=== PATIENT | female | born 1955 | race Caucasian/White ===

== ENCOUNTER 2017-11-02 11:42 | Day surgery (SDC) | payer BC, SELFPAY ==
[2017-11-02] VITALS (7 sets, daily range): BP systolic 134–155; BP diastolic 80–90; PULSE 90–101; RESP 18–20; TEMP 36.6–36.7; O2SAT 94–98; BMI 49.1
[2017-11-02] MEDS: MethylPREDNISolone Acetate 80 MG/ML Vial (12:41)
[2017-11-02] MEDS: Bupivacaine 0.25% 30 ML Vial (12:43)
--- NOTE | 2017-11-02 13:10 | RAD_ITS ---
STUDY: X-RAY - LUMBAR SPINE REASON FOR EXAM: Female, 62 years old. Left L3-S1 radiofrequency ablation. TECHNIQUE: 6 coned-down view(s) of the lumbar spine were obtained intraoperatively. COMPARISON: None FINDINGS: Imaging was provided for left L3-S1 radiofrequency ablation. RAD/L/S Spine Min 4 Views IMPRESSION: Fluoroscopic services provided for left L3-S1 radiofrequency ablation. Electronically Signed: Chuck Salazar MD at 14:04 EST Tel [phone], Service support ,
--- NOTE | 2017-11-02 13:31 | PCM.OPRPT ---
Problem List (1) Lumbar degenerative disc disease Status: Chronic (2) Lumbar facet arthropathy Status: Chronic (3) Lumbosacral spondylosis Status: Chronic Report of Operation Date of Procedure: 11/02/17 Pre-Operative Diagnosis: Lumbosacral spondylosis, lumbosacral degenerative disc disease, lumbar facet arthropathy Post-Operative Diagnosis: Lumbosacral spondylosis, lumbosacral degenerative disc disease, lumbar facet arthropathy Surgery/Procedure Performed:: Left-sided lumbar radiofrequency ablation of the medial branch L3, L4, L5, S1 Description of Surgical Findings:: PROCEDURE: Left-sided radiofrequency ablation of the medial branch L3, L4, L5, S1 PREOPERATIVE DIAGNOSES: Lumbosacral spondylosis, lumbosacral degenerative disc disease, lumbar facet arthropathy POSTOPERATIVE DIAGNOSES: Lumbosacral spondylosis, lumbosacral degenerative disc disease, lumbar facet arthropathy ANESTHESIA: MAC COMPLICATIONS: None BLOOD LOSS: Minimal PROCEDURE IN DETAIL: History and physical today was reviewed. Risks and benefits of procedure explained. The patient understood, agreed to the procedure and informed consent was obtained. IV inserted per routine protocol. The patient was taken to the operating room, placed in the prone position with a pillow positioned underneath the abdomen. The right side of the lower back was prepped and draped in a sterile fashion using iodine x 3. Under fluoroscopy guidance, on an oblique view, the L3 through S1 vertebral bodies were visualized. The skin and subcutaneous tissue was anesthetized with approximately 10 mL of 1% lidocaine using a 25-gauge regular needle. Under direct visualization with fluoroscopy at approximately 25-degree angle, starting on the left L3, ending on the left S1 passing through the L4-L5 using a 20-gauge 15 cm with a 10 mm curved active tip radiofrequency ablation needle the needle passed through the skin. The tip of the needle was maneuvered and directed towards the superior and medial gutter of the transverse process at the vicinity of the medial branch. Once the tip of the needle was in contact with the bone, the needle pulled approximately 2 mm up the bone. The stylet of each needle was then removed. After negative aspiration of blood with CSF and confirmation of AP as well as oblique view, radiofrequency ablation probe was then inserted at each level. Impedance was then recorded at L3 to be 249, at L4 268, at L5 297, at S1 279 ohm. Motor-evoked potential was then initiated to 1.5 volt without any motor response at each corresponding level. The probe was then removed intact and a total of 6 mL preservative-free 1% lidocaine was injected in divided doses between those 4 levels after negative aspiration of blood with CSF. The radiofrequency ablation probe was then reinserted after confirmation of AP, oblique as well as lateral view. Radiofrequency ablation was then initiated to 80 degrees Celsius for 90 seconds at each level. Once concluded, the probe was then removed intact and a total of 6 mL of preservative-free 0.25% Marcaine with 40 mg Depo-Medrol was injected in divided doses between those 4 levels. The needles were then removed intact. The patient experienced no signs or symptoms of intrathecal, intravascular injection. The patient experienced no paraesthesia. The procedure was completed without any apparent difficulty, any complication. The patient appeared to tolerate well. Sensory as well as motor exam was unchanged from prior to procedure. ASSESSMENT AND PLAN: This is a 62-year-old Female with lumbosacral spondylosis, lumbosacral degenerative disc disease, lumbar facet arthropathy, status post left-sided radiofrequency ablation of the medial branch L3 through S1. The patient will continue her current medications. The patient will follow up in approximately 2 weeks for reevaluation.
== END 2017-11-02 15:40 | disposition home or self-care (01) ==
LOC: SDC 11:44 → ACINP 11:47 → AC 13:35
PROVIDERS: Family Provider Family Medicine; PCP Family Medicine; Visit Provider Anesthesiology Pain Medicine
PROC: (CPT 64635; principal; 2017-11-02 12:55)
DX: M47.817 Spondylosis without myelopathy or radiculopathy, lumbosacral region (principal); M51.37 Other intervertebral disc degeneration, lumbosacral region; E03.9 Hypothyroidism, unspecified; E11.9 Type 2 diabetes mellitus without complications; E55.9 Vitamin D deficiency, unspecified; J45.909 Unspecified asthma, uncomplicated; M79.1 Myalgia; M54.16 Radiculopathy, lumbar region; Z79.891 Long term (current) use of opiate analgesic
CPT/HCPCS: 64635; 64636 ×3; 72110; 76000; J7120

== ENCOUNTER 2018-02-01 07:22 | Day surgery (SDC) | payer BC, SELFPAY ==
[2018-02-01 08:15] VITALS: BP 144/92; PULSE 92; RESP 18; TEMP 36.6; O2SAT 97; BMI 47.9
[2018-02-01] MEDS: Bupivacaine 0.25% 30 ML Vial (08:29)
[2018-02-01] MEDS: 0.9% Saline Lock 10 ML Syringe IV (08:30)
[2018-02-01] MEDS: MethylPREDNISolone Acetate 80 MG/ML Vial (08:30)
[2018-02-01 08:40] LABS: Bedside Glucose 112 mg/dL (70-110)
--- NOTE | 2018-02-01 09:10 | RAD_ITS ---
PROCEDURE: Caudal block. DATE OF EXAMINATION: February 01, 2018. INDICATION: Female, 62 years old. Chronic low back pain. FLUOROSCOPY TIME (if supplied): (0:05) minutes/seconds Intraoperative imaging provided for caudal block. RAD/Fluor Guidance for Spine Inj IMPRESSION: Intraoperative imaging provided for caudal block. Electronically Signed: Chuck Salazar MD at 14:45 EDT Tel [phone], Service support ,
[2018-02-01 09:35] VITALS: BP 132/98; BP 144/92; PULSE 85; RESP 16; TEMP 37.4; O2SAT 95
[2018-02-01 09:40] VITALS: BP 144/92; BP 153/88; PULSE 88; RESP 16; O2SAT 94
[2018-02-01 09:45] VITALS: BP 144/92; BP 159/94; BP 161/90; PULSE 85; PULSE 88; RESP 16; TEMP 36.6; O2SAT 95; O2SAT 96
[2018-02-01 11:32] VITALS: BP 144/92
--- NOTE | 2018-02-01 15:40 | PCM.OPRPT ---
Problem List (1) Lumbar degenerative disc disease Status: Chronic (2) Lumbar radiculopathy Status: Chronic (3) Lumbar stenosis Status: Chronic Report of Operation Date of Procedure: 02/01/18 Pre-Operative Diagnosis: Lumbosacral radiculopathy, lumbosacral degenerative disc disease, lumbosacral spinal stenosis Post-Operative Diagnosis: Lumbosacral radiculopathy, lumbosacral degenerative disc disease, lumbosacral spinal stenosis Surgery/Procedure Performed:: Caudal epidural steroid injection Description of Surgical Findings:: Procedure: Caudal epidural steroid injection Preoperative diagnosis: Lumbosacral radiculopathy, lumbosacral degenerative disc disease, lumbosacral spinal stenosis Postoperative diagnosis:Lumbosacral radiculopathy, lumbosacral degenerative disc disease, lumbosacral spinal stenosis Anesthesia: MAC Blood loss: Minimal Complications: None Procedure in detail: History and physical today was reviewed risk and benefits of procedure explained the patient understood and agreed to procedure informed consent was obtained IV inserted per routine protocol patient was taken to the operating room placed in the prone position with a pillow position underneath the abdomen the lower back and tailbone area was prepped and draped in a sterile fashion using iodine ?3 under direct visualization with fluoroscopy on the lateral view the caudal space was identified skin and subcutaneous tissue anesthetized approximately 3 cc of 1% lidocaine using a 25-gauge regular needle under direct visualization fluoroscopy on the lateral view using a 22-gauge 3-1/2 inch spinal needle the needle was advanced via the skin through the sacral hiatus tip of needle passed through the sacrococcygeal ligament advanced approximately S4 area after negative aspiration for blood or CSF a total of 3 cc of contrast were injected to confirm correct placement of the needle as well as cephalad spread the spread was followed to approximately L5 area after repeated confirmation AP as well as lateral view and repeated negative aspiration a total of 15 cc of preservative-free 0.125% Marcaine with 80 mg of Depo-Medrol were injected easily the needle was then removed intact patient experienced no sinus symptoms intrathecal or intravascular injection patient experienced no paresthesia the procedure was completed without any apparent difficulty any complication the patient appeared to tolerate well. Assessment and plan: This is a 62-year-old female with lumbosacral radiculopathy lumbosacral degenerative disc disease lumbosacral spinal stenosis status post caudal epidural steroid injection patient will continue her current medications patient will follow approximately 2 weeks for possible repeat of the procedure if indicated.
== END 2018-02-01 11:32 | disposition home or self-care (01) ==
LOC: SDC 07:23 → AC 07:46
PROVIDERS: Family Provider Family Medicine; PCP Family Medicine; Visit Provider Anesthesiology Pain Medicine
PROC: 3E0S3BZ Introduction of Anesthetic Agent into Epidural Space, Percutaneous Approach (ICD-10-PCS; CPT 62282; principal; 2018-02-01 09:05)
DX: M51.17 Intervertebral disc disorders with radiculopathy, lumbosacral region (principal); M48.07 Spinal stenosis, lumbosacral region; E03.9 Hypothyroidism, unspecified; E11.9 Type 2 diabetes mellitus without complications; J45.909 Unspecified asthma, uncomplicated; M79.1 Myalgia; M47.817 Spondylosis without myelopathy or radiculopathy, lumbosacral region; Z79.891 Long term (current) use of opiate analgesic
CPT/HCPCS: 01935; 64483; 77003; 82962; J7120; A4216

== ENCOUNTER 2018-05-03 09:12 | Day surgery (SDC) | payer BC, SELFPAY ==
[2018-05-03] VITALS (7 sets, daily range): BP systolic 93–148; BP diastolic 70–83; PULSE 85–100; RESP 14–16; TEMP 36–36.9; O2SAT 94–98; BMI 45.1
--- NOTE | 2018-05-03 10:24 | RAD_ITS ---
PROCEDURE: Caudal block. DATE OF EXAMINATION: May 03, 2018 INDICATION: Female, 62 years old. Chronic back pain. FLUOROSCOPY TIME (if supplied): (0:04) minutes/seconds A caudal block was performed by the pain management physician. The spinal needle is seen along the posterior midportion of the sacrum. RAD/Fluor Guidance for Spine Inj IMPRESSION: Fluoroscopic services provided for caudal block. Electronically Signed: Chuck Salazar MD at 8:01 EDT Tel [phone], Service support ,
[2018-05-03] MEDS: Bupivacaine 0.25% 30 ML Vial (10:26)
[2018-05-03] MEDS: MethylPREDNISolone Acetate 80 MG/ML Vial (10:26)
--- NOTE | 2018-05-03 11:17 | OP.PCM_ITS ---
Problem List (1) Lumbar degenerative disc disease Status: Chronic (2) Lumbar radiculopathy Status: Chronic (3) Lumbar stenosis Status: Chronic Report of Operation Date of Procedure: 05/03/18 Pre-Operative Diagnosis: Lumbosacral radiculopathy, lumbosacral degenerative disc disease, lumbosacral spinal stenosis Post-Operative Diagnosis: Lumbosacral radiculopathy, lumbosacral degenerative disc disease, lumbosacral spinal stenosis Surgery/Procedure Performed:: Caudal epidural steroid injection Description of Surgical Findings:: PROCEDURE: Caudal epidural steroid injection PREOPERATIVE DIAGNOSIS: Lumbosacral radiculopathy, lumbosacral degenerative disc disease, lumbosacral spinal stenosis POSTOPERATIVE DIAGNOSIS: Lumbosacral radiculopathy, lumbosacral degenerative disc disease, lumbosacral spinal stenosis ANESTHESIA: MAC COMPLICATIONS: None BLOOD LOSS: Minimal PROCEDURE IN DETAIL: History and physical today was reviewed. Risks and benefits of the procedure were explained. The patient understood, agreed to our procedure, and informed consent was obtained. IV inserted per routine protocol. The patient was taken to the operating room, placed in a prone position with a pillow positioned underneath the abdomen. The lower back and tailbone area was prepped and draped in a sterile fashion using iodine ?3 under fluoroscopy guidance on the lateral view the caudal space was identified skin and subcutaneous tissue anesthetized approximately 3 cc of 1 % lidocaine using a 25-gauge regular needle under direct visualization with fluoroscopy on the lateral approach using a 22-gauge 3-1/2 inch spinal needle the needle was advanced via the skin through the sacral hiatus tip of the needle passed through the sacrococcygeal ligament advanced approximately S4 area after negative aspiration for blood or CSF a total of 3 cc of contrast were injected to confirm correct placement of the needle as well as cephalad spread the spread was followed to approximately L5 area after confirmation of AP as well as lateral view and repeated negative aspiration a total of 15 cc of preservative-free 0.125% Marcaine with 80 mg of Depo-Medrol were injected easily the needle was then removed intact patient experienced no sinus symptoms intrathecal or intravascular injection patient experienced no paresthesia the procedure was completed without any apparent difficulty any complication the patient appeared to tolerate well. ASSESSMENT AND PLAN: This is a 62-year-old Female with lumbosacral radiculopathy, lumbosacral degenerative disc disease, lumbosacral spinal stenosis status post caudal epidural steroid injection. The patient will continue her current medications. The patient will follow in approximately 2 weeks for possible repeat of the procedure if indicated.
== END 2018-05-03 12:38 | disposition home or self-care (01) ==
LOC: SDC 09:12 → AC 09:15
PROVIDERS: Family Provider Family Medicine; PCP Family Medicine; Visit Provider Anesthesiology Pain Medicine
PROC: 3E0S3BZ Introduction of Anesthetic Agent into Epidural Space, Percutaneous Approach (ICD-10-PCS; CPT 62282; principal; 2018-05-03 10:25)
DX: M51.17 Intervertebral disc disorders with radiculopathy, lumbosacral region (principal); M48.07 Spinal stenosis, lumbosacral region; E03.9 Hypothyroidism, unspecified; E11.9 Type 2 diabetes mellitus without complications; J45.909 Unspecified asthma, uncomplicated; M46.96 Unspecified inflammatory spondylopathy, lumbar region; M79.1 Myalgia; M47.817 Spondylosis without myelopathy or radiculopathy, lumbosacral region; Z79.891 Long term (current) use of opiate analgesic
CPT/HCPCS: 64483; 77003; J7120; J3490

== ENCOUNTER → 2018-06-01 12:47 | Outpatient (CLI) | payer BC, SELFPAY | PROVIDERS: Family Provider Family Medicine; PCP Family Medicine; Visit Provider Orthopaedic Surgery | DX: M54.16 Radiculopathy, lumbar region (principal) | CPT/HCPCS: 72114 ==

== ENCOUNTER → 2018-08-10 12:54 | Outpatient (CLI) | payer BC, SELFPAY ==
--- NOTE | 2018-08-10 12:57 | RAD_ITS ---
STUDY: X-RAY - LUMBAR SPINE REASON FOR EXAM: Female, 63 years old. Leg numbness. Surgery June 18. TECHNIQUE: 2 upright view(s) of the lumbar spine were obtained. COMPARISON: 7 total images of the lumbar spine with lateral flexion and extension views June 01, 2018. FINDINGS: Since the prior study, the patient has undergone L3-4 discectomy and placement of a prosthesis as well as L3 laminectomies and bilateral posterior fusion L2-L4. Bilateral transpedicular screws at those levels are connected on either side but longitudinal metal rods. There is straightening of the normal lumbar lordosis. 21.5 degree levorotoscoliosis centered at L1-2 on prior exam has been reduced to approximately 14 degree levoscoliosis with minimal rotation. Anterolisthesis of L3 on L4 also has been decreased to approximately 4 mm. There is stable borderline retrolisthesis and mild rightward subluxation of L4 on L5. There is stable multilevel endplate spondylosis of the lumbar vertebrae, including posterolateral endplate spurring at L4-5 and L5-S1. Ridging left lateral endplate osteophytes at L4-5 also unchanged. There is stable multi-level degenerative disc disease with multi-level disc space narrowing. There is no demonstrated fracture. Degenerative changes of the lumbar facet articulations are most prominent at L4-5 and L5-S1. There are also stable degenerative arthroses of the bilateral sacroiliac joints. The soft tissue structures are unremarkable. RAD/Lumbar Spine 2 or 3 Views IMPRESSION: 1. Patient has undergone L3 laminectomies, L4-5 discectomy with placement of a disc prosthesis, and bilateral posterior L2-L4 fusion with metal hardware since previous study. Levorotoscoliosis centered at L1-2 as well as anterolisthesis of L3-4 are improved, as noted. 2. Degenerative changes of the spine, as detailed above, are otherwise unchanged. Electronically Signed: Candelario Samuels MD at 14:32 EDT , Service support ,
== END ==
PROVIDERS: Family Provider Family Medicine; PCP Family Medicine; Referring Provider Orthopaedic Surgery; Visit Provider Orthopaedic Surgery
DX: M54.5 Low back pain (principal)
CPT/HCPCS: 72100

== ENCOUNTER → 2018-09-28 10:29 | Outpatient (CLI) | payer BC, SELFPAY ==
[2018-05-03 09:34] VITALS: BMI 45.1
--- NOTE | 2018-09-28 10:33 | RAD_ITS ---
STUDY: X-RAY - LUMBAR SPINE REASON FOR EXAM: Female, 63 years old. Lower back pain TECHNIQUE: Frontal and lateral view(s) of the lumbar spine were obtained. COMPARISON: None FINDINGS: Mild low lumbar extra scoliosis. Posterior carley and pedicle screw fixation at L2-L4, with interbody spacer at L3-L4. L4-L5 moderate disc space narrowing, endplate degenerative changes, disc vacuum changes. Mild to moderate disc degenerative features at L5-S1 Multilevel mid to low lumbar facet arthropathy. There is normal vertebral body height at each level. There is mild anterior listhesis of L3 relative to L2 and L4. RAD/Lumbar Spine 2 or 3 Views IMPRESSION: Listhesis of L3 relative to L2 and L4. Surgical construct between L2 and L4 appears intact. Prominent disc degenerative features at L4-L5, mild to moderate L5-S1. Scoliosis. Electronically Signed: Chris Arteaga MD at 17:54 EST Tel , Service support ,
--- OUTSIDE RECORDS SUMMARY | 2018-11-14 11:00 | XMS RPT_ITS ---
:1955 Author Organization OHIP Support Name Relationship Address Phone HOSPICE Unavailable [address] + [place] [address] NICKLIN, DANA Unavailable [address] + [place] [address] HOSPICE Unavailable [address] + [place] [address] NICKLIN, DANA Unavailable [address] + [place] [address] HOSPICE Unavailable [address] + [place] [address] NICKLIN, DANA Unavailable [address] + [place] [address] HOSPICE Unavailable [address] + [place] [address] NICKLIN, DANA Unavailable [address] + [place] [address] HOSPICE Unavailable [address] + [place] [address] NICKLIN, DANA Unavailable [address] + [place] [address] ALEXEI KELLY Unavailable Unavailable Unavailable DOMERS, GEOVANNY Unavailable Unavailable Unavailable KOSIBA, AMANDO Unavailable Unavailable Unavailable BARIISADORAMAN KELLY Unavailable Unavailable Unavailable DOMERS, GEOVANNY Unavailable Unavailable Unavailable KOSIBA, AMANDO Unavailable Unavailable Unavailable BARIARASH FAYEEN Unavailable Unavailable Unavailable DOMERS, GEOVANNY Unavailable Unavailable Unavailable KOSIBA, AMANDO Unavailable Unavailable Unavailable BARICKMAN KELLY Unavailable Unavailable Unavailable DOMERS, GEOVANNY Unavailable Unavailable Unavailable KOSIBA, AMANDO Unavailable Unavailable Unavailable HOSPICE Unavailable [address] + [place] [address] NICKLIN, DANA Unavailable [address] + [place] [address] HOSPICE Unavailable [address] + [place] [address] NICKLIN, DANA Unavailable [address] + [place] [address] HOSPICE Unavailable [address] + [place] [address] NICKLIN, DANA Unavailable Unavailable + [place] [address] HOSPICE Unavailable [address] + [place] [address] NICKLIN, DANA Unavailable Unavailable + [place] [address] KELLY ROTHMAN Unavailable Unavailable Unavailable DOMERS, GEOVANNY Unavailable Unavailable Unavailable KOSIBA, AMANDO Unavailable Unavailable Unavailable Care Team Providers Name Role Phone CINTIA WEINBERG Admitting Unavailable CINTIA WEINBERG Attending Unavailable MARYAN, CHAPARRO A Referring Unavailable CONSULT, GENERAL MEDICINE Consulting Unavailable CINTIA WEINBERG Attending Unavailable MENG WEINBERGCINTIA Referring Unavailable CINTIA WEINBERG Attending Unavailable SELF, SELF Referring Unavailable MARYAN, CHAPARRO A Primary Care Unavailable DEEPIKA LOO Attending Unavailable MENDY CARRILLO Referring Unavailable MARYAN, CHAPARRO A Primary Care Unavailable DEEPIKA LOO Attending Unavailable MENDY CARRILLO Referring Unavailable MARYAN, CHAPARRO A Primary Care Unavailable CINTIA WEINBERG Attending Unavailable SULTANA, CINTIA Referring Unavailable Cintia Weinberg Attending Unavailable Maryan, Chaparro Referring Unavailable Cintia Weinberg Attending Unavailable Sultana, Cintia Referring Unavailable Maryan, Chaparro Primary Care Unavailable Jan Bhat Attending Unavailable Jan Bhat Referring Unavailable Maryan, Chaparro Primary Care Unavailable Jan Bhat Attending Unavailable Jan Bhat Referring Unavailable Maryan, Chaparro Primary Care Unavailable Cintia Weinberg Attending Unavailable Maryan, Chaparro Referring Unavailable Maryan, Chaparro Primary Care Unavailable Cintia Weinberg Attending Unavailable Maryan, Chaparro Primary Care Unavailable Cintia Weinberg Attending Unavailable Maryan, Chaparro Referring Unavailable Cintia Weinberg Attending Unavailable Maryan, Chaparro Referring Unavailable Weinberg, Cintia Attending Unavailable Weinberg, Cintia Referring Unavailable Maryan, Chaparro Primary Care Unavailable PROBLEMS PROBLEMS DATE TYPE CONDITION / CODE ATTENDING STATUS SOURCE 09/28/2018 Unknown Z98.1 - Cintia Weinberg Active [place] Arthrodesis status [facility] / Z98.1(ICD-10) Hospital Repository 08/10/2018 Unknown M54.5 - Low back Cintia Weinberg Active [place] pain / [facility] M54.5(ICD-10) Hospital Repository 06/18/2018 Admitting Arthrodesis status CINTIA WEINBERG Active [facility] / Z98.1(ICD-10) [facility] Repository 06/18/2018 Admitting Spinal stenosis, CINTIA WEINBERG Active [facility] diagnosis lumbar region [place] [facility] M48.061(ICD-10) Repository 06/10/2018 Admitting Pre-op Exam / CINTIA WEINBERG Active [facility] diagnosis [id number]() [facility] Repository 06/01/2018 Unknown M54.16 - Cintia Weinberg Active [place] Radiculopathy, [facility] lumbar region / Hospital M54.16(ICD-10) Repository PROCEDURES PROCEDURES No Procedure Records FoundRESULTS RESULTS ORTHOPEDIC VISIT Observed: 10/09/2018 Status: F Source: MORNING SUN REPORT 3:47 PM [facility] REPOSITORY [facility] [address] [place] [address] OFFICE VISIT Date of Service: 09/28/18 MR#: [id number] Acct: [id number] Name: KELLY ROTHMAN Rep #: [id number] : 1955 Provider: Cintia Weinberg MD Age/Sex: 63/F [place] [facility] [place] [place] Signed Intake Intake Visit Reasons: LOW BACK Allergies tioconazole [From Monistat 1 (tioconazole)] Allergy (Verified 08/10/18 13:01) Unknown Medications Albuterol Inhaler [Ventolin Hfa (SP)] 1 - 2 puff INHALATION Q4H PRN PRN 06/04/17 [History Confirmed 05/03/18] Cholecalciferol (Vitamin D3) [Vitamin D3] 5,000 unit PO DAILY 06/04/17 [History Confirmed 05/03/18] Ibuprofen 800 mg PO DAILY 06/04/17 [History Confirmed 05/03/18] Levothyroxine [Synthroid] 200 mcg PO DAILY 06/04/17 [History Confirmed 05/03/18] Metformin HCl [Metformin HCl ER] 500 mg PO DAILY 06/04/17 [History Confirmed 05/03/18] Montelukast Sodium [Singulair] 10 mg PO QHS 06/04/17 [History Confirmed 05/03/18] Cyclobenzaprine [Flexeril] 5 mg PO DAILY 11/02/17 [History Confirmed 05/03/18] [facility] Surgical History h/o lumbar surgery (Acute) Social History Smoking Status: Never smoker HPI LOW BACK: Details: KELLY ROTHMAN returns today in follow up 3.5 months s/p L4-L5 laminectomy with L3-L4 TLIF with instrumented fusion at [facility] 06/18/18. Patient states that she has improved since her surgery by about 85-90%. She denies any low back pain but has stable bilateral lower extremity paresthesias. She feels her bilateral legs are getting stronger. She admits to rarely bending, twisting and lifting. She denies fevers or chills. Patient is ambulating more upright but continues to use a cane. She notes that she is not back to work at this time. ROS Const Reports system reviewed and no additional complaints, except as docu Eyes Reports system reviewed and no additional complaints, except as docu ENT Reports system reviewed and no additional complaints, except as docu Card Reports system reviewed and no additional complaints, except as docu Resp Reports system reviewed and no additional complaints, except as docu GI Reports system reviewed and no additional complaints, except as docu Reports system reviewed and no additional complaints, except as docu Musc Reports numbness Skin/Breast Reports system reviewed and no additional complaints, except as docu Neuro Yes system reviewed and no additional complaints, except as docu, Yes numbness Psych Reports system reviewed and no additional complaints, except as docu Endo Reports system reviewed and no additional complaints, except as docu Ortho Exam Spine Neuro: Yes Straight Leg Raise (negative bilaterally) General: alert, oriented x3 Skin: Yes healed Capillary Refill <2sec: Yes Gait: normal gait (improved) Motor: muscle tone normal throughout Sensory Exam: other (decreased in bilateral legs in stocking glove distribution) DTR's: Rt Patellar: 0, Lt Patellar: 0, Rt Ankle: 0, Lt Ankle: 0 SPINE TESTING CERVICAL THORACIC LUMBAR SLR: Negative Musculoskeletal General: Yes normal posture Thoracic/Lumbar Spine: surgical scar(s) present, straight leg raise negative bilaterally, other (no significant tenderness along the lumbar spine) Strength 0=absent - 5=normal R Hip Flexor (L1-3): 5, L Hip Flexor (L1-3): 5, R Quadriceps (L2-4): 5, L Quadriceps (L2-4): 5 (5-), R Anterior Tibialis (L4-5): 5, L Anterior Tibialis (L4- 5): 5, R Hamstrings (L5-S1): 5, L Hamstrings (L5-S1): 5, GS (S1): 5, L GS (S1): 5, R Peroneals (S1): 5, L Peroneals (S1): 5 Assessment AND Plan Problems 1. S/P spinal fusion Z98.1 Plan Imaging: XR lumbar spine 09/28/2018 reveal stable instrumentation I/R/P: 1. status post L2-4 laminectomy with L3-4 TLIF and instrumented fusion on 06/18/2018 2. urinary urgency, chronic 3. DM 4. BMI 43 Ms. Rothman is doing well. She is progressing. At this time, will initiate physical therapy. Prescription provided. She will remain off work for an additional 6 weeks to participate in physical therapy, then gradually return to work several hours per day. Follow up in 3 months with standing lumbar radiographs or sooner if issues arise. Plan of care discussed. All questions answered. She is in understanding. Orders Orders: Coding Level of Care Code Off vis,est,level 4 Diagnoses S/P spinal fusion Z98.1 10/09/18 1547 <Electronically signed by Cintia Weinberg MD> Date Cintia Weinberg MD Cosigner Signature: Date (if applicable) CC: Jan Bhat LUMBAR SPINE 2 OR 3 Observed: 09/28/2018 Status: F Source: [place] VIEWS 10:33 AM [facility] REPOSITORY [facility] Imaging Services [address] [place] [address] Lumbar Spine 2 or 3 Views MR#: [id number] Acct: [id number] Name: KELLY ROTHMAN Rep #: [id number] : 1955 F 63 From: Chris Arteaga MD PCP: Chaparro Steinberg MD Status: REG CLI Study: Lumbar Spine 2 or 3 Views Date of Exam: 09/28/18 Exam# [id number] Ordering Dr: Cintia Weinberg MD STUDY: X-RAY - LUMBAR SPINE REASON FOR EXAM: Female, 63 years old. Lower back pain TECHNIQUE: Frontal and lateral view(s) of the lumbar spine were obtained. COMPARISON: None FINDINGS: Mild low lumbar extra scoliosis. Posterior carley and pedicle screw fixation at L2-L4, with interbody spacer at L3-L4. L4-L5 moderate disc space narrowing, endplate degenerative changes, disc vacuum changes. Mild to moderate disc degenerative features at L5-S1 Multilevel mid to low lumbar facet arthropathy. There is normal vertebral body height at each level. There is mild anterior listhesis of L3 relative to L2 and L4. RAD/Lumbar Spine 2 or 3 Views IMPRESSION: Listhesis of L3 relative to L2 and L4. Surgical construct between L2 and L4 appears intact. Prominent disc degenerative features at L4-L5, mild to moderate L5-S1. Scoliosis. 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 ORTHOPEDIC VISIT Observed: 08/15/2018 Status: F Source: [place] REPORT 2:06 PM [facility] REPOSITORY [facility] [address] [place] [address] OFFICE VISIT Date of Service: 08/10/18 MR#: [id number] Acct: [id number] Name: KELLY ROTHMAN Rep #: [id number] : 1955 Provider: Cintia Weinberg MD Age/Sex: 63/F [place] [facility] [place] Status: Signed Intake Intake Visit Reasons: LOW BACK Is patient in pain?: Yes Allergies tioconazole [From Monistat 1 (tioconazole)] Allergy (Verified 08/10/18 13:01) Unknown Medications Albuterol Inhaler [Ventolin Hfa (SP)] 1 - 2 puff INHALATION Q4H PRN PRN 06/04/17 [History Confirmed 05/03/18] Cholecalciferol (Vitamin D3) [Vitamin D3] 5,000 unit PO DAILY 06/04/17 [History Confirmed 05/03/18] Ibuprofen 800 mg PO DAILY 06/04/17 [History Confirmed 05/03/18] Levothyroxine [Synthroid] 200 mcg PO DAILY 06/04/17 [History Confirmed 05/03/18] Metformin HCl [Metformin HCl ER] 500 mg PO DAILY 06/04/17 [History Confirmed 05/03/18] Montelukast Sodium [Singulair] 10 mg PO QHS 06/04/17 [History Confirmed 05/03/18] Cyclobenzaprine [Flexeril] 5 mg PO DAILY 11/02/17 [History Confirmed 05/03/18] PFSH Social History Smoking Status: Never smoker HPI LOW BACK: Details: KELLY ROTHMAN returns today 6 weeks s/p L4-L4 laminectomy with L3-4 TLIF with instrumented fusion at [facility] dos 06/18/18. Patient notes that she is doing well and her pain is improving. She is nearly 100% improved from her preoperative pain. She takes tylenol as needed. She states the numbness has improved in her thighs, but the same in her calves and feet. She still has gait instability due to the paresthesias. She uses a cane to ambulate. She denies fevers or chills. She states her pelvic pain has improved. ROS Const Reports system reviewed and no additional complaints, except as docu Eyes Reports system reviewed and no additional complaints, except as docu ENT Reports system reviewed and no additional complaints, except as docu Card Reports system reviewed and no additional complaints, except as docu Resp Reports system reviewed and no additional complaints, except as docu GI Reports system reviewed and no additional complaints, except as docu Reports system reviewed and no additional complaints, except as docu Musc Reports numbness, Reports back pain Skin/Breast Reports system reviewed and no additional complaints, except as docu Neuro Yes system reviewed and no additional complaints, except as docu, Yes numbness Psych Reports system reviewed and no additional complaints, except as docu Endo Reports system reviewed and no additional complaints, except as docu Ortho Exam Spine Neuro: Yes Straight Leg Raise (negative bilaterally) General: alert, oriented x3 Skin: Yes healing Capillary Refill <2sec: Yes Gait: other (improved gait pattern) Motor: strength 5/5 throughout Sensory Exam: other (decreased sensation in stocking glove distribution in bilateral legs to kne) DTR's: Rt Patellar: 1+, Lt Patellar: 1+, Rt Ankle: 1+, Lt Ankle: 1+ Plantar Reflexes: Downgoing: bilateral SPINE TESTING CERVICAL THORACIC LUMBAR SLR: Negative Musculoskeletal General: Yes normal gait (improved) Thoracic/Lumbar Spine: surgical scar(s) present, paraspinal tenderness (mild) Strength 0=absent - 5=normal R Hip Flexor (L1-3): 5, L Hip Flexor (L1-3): 5, R Quadriceps (L2-4): 5, L Quadriceps (L2-4): 5 (5-), R Anterior Tibialis (L4-5): 5, L Anterior Tibialis (L4- 5): 5, R Hamstrings (L5-S1): 5, L Hamstrings (L5-S1): 5, GS (S1): 5, L GS (S1): 5, R Peroneals (S1): 5, L Peroneals (S1): 5 Assessment AND Plan Problems 1. S/P spinal fusion Z98.1 Plan Imaging: XR lumbar spine 08/10/2018 stable instrumentation I/R/P: 1. status post L2-4 laminectomy with L3-4 TLIF and instrumented fusion 06/18/2018 2. urinary urgency, chronic 3. DM 4. BMI 43 Ms. Rothman is doing well. She is improved from preop. Continue restrictions. Follow up in 6 weeks with standing lumbar radiographs or sooner if issues arise. She will remain off work for a minimum of 3 months postoperatively. 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 All questions answered. She is in understanding. Orders Orders: Coding Level of Care Code Global Post Op Diagnoses S/P spinal fusion Z98.1 08/15/18 1406 <Electronically signed by Cintia Weinberg MD> Date Cintia Weinberg MD Cosigner Signature: Date (if applicable) CC: Janjon Bhat LUMBAR SPINE 2 OR 3 Observed: 08/10/2018 Status: F Source: [facility] 12:57 PM [facility] REPOSITORY [facility] Imaging Services [address] [place] [address] Lumbar Spine 2 or 3 Views MR#: [id number] Acct: [id number] Name: KELLY ROTHMAN Rep #: [id number] : 1955 F 63 From: Craig Samuels MD PCP: Chaparro Steinberg MD Status: REG CLI Study: Lumbar Spine 2 or 3 Views Date of Exam: 08/10/18 Exam# [id number] Ordering Dr: Cintia Weinberg MD STUDY: X-RAY - LUMBAR SPINE REASON FOR EXAM: Female, 63 years old. Leg numbness. Surgery June 18. TECHNIQUE: 2 upright view(s) of the lumbar spine were obtained. COMPARISON: 7 total images of the lumbar spine with lateral flexion and extension views June 01, 2018. FINDINGS: Since the prior study, the patient has undergone L3-4 discectomy and placement of a prosthesis as well as L3 laminectomies and bilateral posterior fusion L2-L4. Bilateral transpedicular screws at those levels are connected on either side but longitudinal metal rods. There is straightening of the normal lumbar lordosis. 21.5 degree levorotoscoliosis centered at L1-2 on prior exam has been reduced to approximately 14 degree levoscoliosis with minimal rotation. Anterolisthesis of L3 on L4 also has been decreased to approximately 4 mm. There is stable borderline retrolisthesis and mild rightward subluxation of L4 on L5. There is stable multilevel endplate spondylosis of the lumbar vertebrae, including posterolateral endplate spurring at L4-5 and L5- S1. Ridging left lateral endplate osteophytes at L4-5 also unchanged. There is stable multi-level degenerative disc disease with multi-level disc space narrowing. There is no demonstrated fracture. Degenerative changes of the lumbar facet articulations are most prominent at L4-5 and L5-S1. There are also stable degenerative arthroses of the bilateral sacroiliac joints. The soft tissue structures are unremarkable. RAD/Lumbar Spine 2 or 3 Views IMPRESSION: 1. Patient has undergone L3 laminectomies, L4-5 discectomy with placement of a disc prosthesis, and bilateral posterior L2-L4 fusion with metal hardware since previous study. Levorotoscoliosis centered at L1-2 as well as anterolisthesis of L3-4 are improved, as noted. 2. Degenerative changes of the spine, as detailed above, are otherwise unchanged. Electronically Signed: Candelario Samuels MD at 14:32 EDT , Service support , CC: Cintia Weinberg MD; Chaparro Steinberg MD Stoker Mechanic: Signed HEMOGRAM (CBC AND Collected: 06/23/2018 Status: F Source: [facility]) 2:53 AM [facility] REPOSITORY TYPE CODE TESTS RESULT OUT OF REFERENCE UNITS RANGE LAB WBC 3.98-10.04 K/uL WBC Count 9.42 LAB RBC 3.93-5.22 M/uL Low RBC Count 3.66 LAB HGB 11.2-15.7 g/dL Low Hemoglobin 10.5 LAB HCT 34.1-44.9 % Low Hematocrit 33.1 LAB MCV 79.4-94.8 fL Mean Cell Volume 90.4 LAB MCH 25.6-32.2 pg Mean Cell Hgb 28.7 LAB MCHC 32.2-35.5 g/dL Low Mean Cell Hgb Conc 31.7 LAB RDW 11.7-14.4 % RBC Distribution 14.4 LAB PLT 182-369 K/uL Platelet Count 316 LAB MPV 9.4-12.3 fL Mean Platelet Volume 9.4 LAB NRBC 0.0-0.2 /100 WBC NUCLEATED RBC 0.0 Performed By: #### HEMOGC, C7C, IPB, MGO #### [facility] [address] [address] CHM7,CA Collected: 06/23/2018 Status: F Source: [facility] 2:53 AM [facility] REPOSITORY TYPE CODE TESTS RESULT OUT OF REFERENCE UNITS RANGE LAB BUN 7-22 mg/dL BUN 8 LAB NA 133-143 mmol/L Sodium 142 LAB K 3.5-5.0 mmol/L Potassium 3.6 LAB CL 98-108 mmol/L Chloride High 113 LAB CO2 22-30 mmol/L Low Carbon Dioxide 21 LAB GLUC 70-99 mg/dL Glucose High 100 LAB CREA 0.50-1.20 mg/dL Creatinine 0.50 LAB GAP 7-17 mmol/L Anion Gap 12 LAB BC BUN/CREA Ratio 16 LAB CA 8.6-10.5 mg/dL Low Calcium 8.5 LAB [facility] 278-305 mOsm/kg Osmolality 294 (Calc) LAB GFR >60 mL/min/1.73 sqM Est GFR,non >60 [place] LAB GFRA >60 mL/min/1.73 sqM Est GFR, >60 Performed By: #### HEMOGC, C7C, IPB, MGO #### [facility] [place] [address] INORGANIC PHOSPHATE Collected: 06/23/2018 Status: F Source: [facility] 2:53 AM [facility] REPOSITORY TYPE CODE TESTS RESULT OUT OF REFERENCE UNITS RANGE LAB IP 2.2-4.6 mg/dL Inorg Phosphate 2.9 Performed By: #### HEMOGC, C7C, IPB, MGO #### [facility] [address] [place], [place] [id number] [place] [address] [address] [place] [address] MAGNESIUM Collected: 06/23/2018 Status: F Source: [facility] 2:53 AM [facility] REPOSITORY TYPE CODE TESTS RESULT OUT OF REFERENCE UNITS RANGE LAB MG 1.6-2.6 mg/dL Magnesium 2.1 Performed By: #### HEMOGC, C7C, IPB, MGO #### [facility] [address] [place] [address] [facility] [address] [place] [address] XR SPINE LUMBOSACRAL AP Observed: 06/22/2018 Status: F Source: [place] [facility] 6:25 PM [facility] REPOSITORY EXAM: XR SPINE LUMBOSACRAL AP AND LATERAL, 06/22/2018 18:13 PM COMPARISON: CT lumbar spine June 20, 2018 CLINICAL INDICATIONS: standing ap and lateral RELEVANT CLINICAL HISTORY: FINDINGS: 2 images obtained. Postsurgical changes are redemonstrated related to dorsal fusion of L2-L4. Stable orthopedic hardware and bone graft material. Disc implant is evident at L3-4. Stable L3 laminectomy. Anterolisthesis of L3 on L4 measures approximately 5 mm. The remainder of the lumbar spine is unchanged. IMPRESSION: Stable dorsal L2-L4 posterior fusion. *POC GLUCOSE BATTERY Collected: 06/22/2018 Status: F Source: [facility] 5:08 PM [facility] REPOSITORY TYPE CODE TESTS RESULT OUT OF REFERENCE UNITS RANGE LAB GLUP 70-99 mg/dL High Glucose (poc 103 device) Result Comment: No BRAVE per RN: PATIENT TYPE LAB PCSTYP *POC Capillary SAMPLE TYPE Blood *POC GLUCOSE BATTERY Collected: 06/22/2018 Status: F Source: [place] [facility] 11:30 AM [facility] REPOSITORY TYPE CODE TESTS RESULT OUT OF REFERENCE UNITS RANGE LAB GLUP 70-99 mg/dL Glucose (poc 96 device) Result Comment: No BRAVE per RN: PATIENT TYPE LAB PCSTYP *POC Capillary SAMPLE TYPE Blood *POC GLUCOSE BATTERY Collected: 06/22/2018 Status: F Source: [facility] 7:25 AM [facility] REPOSITORY TYPE CODE TESTS RESULT OUT OF REFERENCE UNITS RANGE LAB GLUP 70-99 mg/dL High Glucose (poc 105 device) Result Comment: No BRAVE per RN: PATIENT TYPE LAB PCSTYP *POC Capillary SAMPLE TYPE Blood CBC,PLATELET,DIFFERENTIAL - CCL Collected: Status: F Source: [facility] 06/22/2018 12:59 [facility] REPOSITORY TYPE CODE TESTS RESULT OUT OF REFERENCE UNITS RANGE LAB WBC 3.98-10.04 K/uL WBC Count 9.39 LAB RBC 3.93-5.22 M/uL RBC Count 3.64 Low LAB HGB 11.2-15.7 g/dL Hemoglobin 10.4 Low LAB HCT 34.1-44.9 % Hematocrit 33.9 Low LAB MCV 79.4-94.8 fL Mean Cell 93.1 Volume LAB MCH 25.6-32.2 pg Mean Cell 28.6 Hgb LAB MCHC 32.2-35.5 g/dL Mean Cell 30.7 Low alert Hgb Conc LAB RDW 11.7-14.4 % RBC 14.4 Distribution LAB PLT 182-369 K/uL Platelet 220 Count LAB MPV 9.4-12.3 fL Mean 9.8 Platelet Volume LAB NRBC 0.0-0.2 /100 WBC NUCLEATED 0.0 RBC LAB DTYPE Electronic DIFFERENTIAL TYPE Differential LAB IGRE % IMMATURE 0.6 GRANS % LAB SEGS % NEUTROPHIL 70.6 SEGMENTED LAB LYM % LYMPHOCYTE 16.2 % LAB MON % MONOCYTE % 8.3 LAB EOS % EOSINOPHIL 3.9 % LAB BASO % BASOPHIL % 0.4 LAB IGABS <0.04 K/uL IMMATURE 0.06 High GRANS ABSOLUTE LAB SBANS 1.56-6.13 K/uL SEGS + 6.62 High Bands,Absolute LAB ALYM 1.18-3.74 K/uL Abs Lymph 1.52 LAB AMONO 0.24-0.86 K/uL Abs [place] 0.78 LAB AEOS <0.37 K/uL Abs Eos 0.37 High LAB ABASO <0.09 K/uL Abs Baso 0.04 Performed By: #### CBCDFC, M7 #### [facility] [id number] [place] [address] [facility] [address] [place], [place] [address] CHEM 7 Collected: 06/22/2018 Status: F Source: [facility] 12:59 AM [facility] REPOSITORY TYPE CODE TESTS RESULT OUT OF REFERENCE UNITS RANGE LAB BUN 7-22 mg/dL BUN 9 LAB NA 133-143 mmol/L Sodium 140 LAB K 3.5-5.0 mmol/L Low Potassium 3.3 LAB CL 98-108 mmol/L Chloride High 111 LAB CO2 22-30 mmol/L Low Carbon Dioxide 19 LAB GLUC 70-99 mg/dL Glucose High 104 LAB CREA 0.50-1.20 mg/dL Creatinine 0.51 LAB GAP 7-17 mmol/L Anion Gap 13 LAB BC BUN/CREA Ratio 18 LAB [facility] 278-305 mOsm/kg Osmolality 290 (Calc) LAB GFR >60 mL/min/1.73 sqM Est GFR,non >60 [place] LAB GFRA >60 mL/min/1.73 sqM Est GFR, >60 Performed By: #### CBCDFC, CHM7 #### [facility] [address] [place] [address] [address] [place] [address] *POC GLUCOSE BATTERY Collected: 2018 Status: F Source: [facility] 7:53 PM [facility] REPOSITORY TYPE CODE TESTS RESULT OUT OF REFERENCE UNITS RANGE LAB GLUP 70-99 mg/dL High Glucose (poc 104 device) Result Comment: No BRAVE per RN: PATIENT TYPE LAB PCSTYP *POC Capillary SAMPLE TYPE Blood *POC GLUCOSE BATTERY Collected: 2018 Status: F Source: [facility] 4:07 PM [facility] REPOSITORY TYPE CODE TESTS RESULT OUT OF REFERENCE UNITS RANGE LAB GLUP 70-99 mg/dL High Glucose (poc 111 device) Result Comment: No BRAVE per RN: PATIENT TYPE LAB PCSTYP *POC Capillary SAMPLE TYPE Blood *POC GLUCOSE BATTERY Collected: 2018 Status: F Source: [facility] 11:59 AM [facility] REPOSITORY TYPE CODE TESTS RESULT OUT OF REFERENCE UNITS RANGE LAB GLUP 70-99 mg/dL Glucose (poc 84 device) Result Comment: No BRAVE per RN: PATIENT TYPE LAB PCSTYP *POC Capillary SAMPLE TYPE Blood *POC GLUCOSE BATTERY Collected: 2018 Status: F Source: [facility] 7:53 AM [facility] REPOSITORY TYPE CODE TESTS RESULT OUT OF REFERENCE UNITS RANGE LAB GLUP 70-99 mg/dL High Glucose (poc 110 device) Result Comment: No BRAVE per RN: PATIENT TYPE LAB PCSTYP *POC Capillary SAMPLE TYPE Blood *POC GLUCOSE BATTERY Collected: 06/20/2018 Status: F Source: [facility] 8:21 PM [facility] REPOSITORY TYPE CODE TESTS RESULT OUT OF REFERENCE UNITS RANGE LAB GLUP 70-99 mg/dL Glucose (poc 99 device) Result Comment: No BRAVE per RN: PATIENT TYPE LAB PCSTYP *POC Capillary SAMPLE TYPE Blood CT SPINE LUMBAR Observed: 06/20/2018 Status: F Source: [facility] WITHOUT CONTRAST 4:07 PM [facility] REPOSITORY EXAM: CT SPINE LUMBAR WITHOUT CONTRAST, 06/20/2018 14:59 PM COMPARISON: Outside MRI lumbar spine dated June 10, 2018. Outside lumbar spine radiograph dated June 01, 2018. CLINICAL INDICATIONS:62 years Female Follow up lumbar spine fusion; RELEVANT CLINICAL HISTORY: Postop day 2 from L2-L4 posterior spinal fusion. TECHNIQUE: A series of transaxial multislice computerized tomographic thin section source images of the lumbar spine are obtained with helical technique without contrast. Reformats: Axial, sagittal, coronal. This patient underwent a CT examination using radiation exposure as low as reasonably achievable. CTDIvol and DLP radiation exposure values for each series were: Exposure: 1; Series: 6; Anatomy: L Spine; Phantom: 32 cm; CTDIvol: 24; DLP: [address] are the volume Computed Tomography (CT) Dose Index (CTDIvol) and the Dose Length Product (DLP), and are measured in units of mGy and mGy-cm, respectively. These indicators are not patient dose, but values generated from the CT scanner acquisition factors and may substantially underestimate or overestimate the absorbed dose based on patient size and other factors. FINDINGS: Postsurgical changes from L2-L4 posterior spinal fusion with no immediate hardware complication. Bone grafting material noted around the surgical hardware. There is also L3-L4 intervertebral disc cage. L3 laminectomy. Unchanged alignment with minimal anterolisthesis of L3 on L4. Expected postsurgical changes in the paraspinal soft tissues. Vertebral bodies are normal in height. Multilevel marginal osteophyte formation and intervertebral disc space narrowing. No significant bony spinal canal narrowing. IMPRESSION: Postsurgical changes from L2-L4 posterior spinal fusion and L3 laminectomy with no immediate hardware complication. No acute fracture with no change in alignment. I personally viewed and interpreted these images and I have reviewed and approved this report. *POC GLUCOSE BATTERY Collected: 06/20/2018 Status: F Source: [facility] 3:52 PM [facility] REPOSITORY TYPE CODE TESTS RESULT OUT OF REFERENCE UNITS RANGE LAB GLUP 70-99 mg/dL Glucose (poc 80 device) Result Comment: No BRAVE per RN: PATIENT TYPE LAB PCSTYP *POC Capillary SAMPLE TYPE Blood *POC GLUCOSE BATTERY Collected: 06/20/2018 Status: F Source: [facility] 11:22 AM [facility] REPOSITORY TYPE CODE TESTS RESULT OUT OF REFERENCE UNITS RANGE LAB GLUP 70-99 mg/dL Glucose (poc 95 device) Result Comment: No BRAVE per RN: PATIENT TYPE LAB PCSTYP *POC Capillary SAMPLE TYPE Blood *POC GLUCOSE BATTERY Collected: 06/20/2018 Status: F Source: [facility] 7:35 AM [facility] REPOSITORY TYPE CODE TESTS RESULT OUT OF REFERENCE UNITS RANGE LAB GLUP 70-99 mg/dL High Glucose (poc 108 device) Result Comment: No BRAVE per RN: PATIENT TYPE LAB PCSTYP *POC Capillary SAMPLE TYPE Blood CHM7,CA Collected: 06/20/2018 Status: F Source: [facility] 2:38 AM [facility] REPOSITORY TYPE CODE TESTS RESULT OUT OF REFERENCE UNITS RANGE LAB BUN 7-22 mg/dL BUN 8 LAB NA 133-143 mmol/L Sodium 138 LAB K 3.5-5.0 mmol/L Potassium 4.8 Result Comment: SLIGHTLY HEMOLYZED LAB CL 98-108 mmol/L Chloride High 112 LAB CO2 22-30 mmol/L Low Carbon Dioxide 16 LAB GLUC 70-99 mg/dL Glucose High 103 LAB CREA 0.50-1.20 mg/dL Creatinine 0.56 LAB GAP 7-17 mmol/L Anion Gap 15 LAB BC BUN/CREA Ratio 14 LAB CA 8.6-10.5 mg/dL Low Calcium 7.4 LAB OSMC 278-305 mOsm/kg Osmolality (Calc) 289 LAB GFR >60 mL/min/1.73sq M Est GFR,non >60 LAB GFRA >60 mL/min/1.73sq M Est GFR, >60 Performed By: #### C7C, IPB, MGO #### [facility] [address] [place] [address] [facility] [address] [place] [address] INORGANIC PHOSPHATE Collected: 06/20/2018 Status: F Source: [facility] 2:38 AM [facility] REPOSITORY TYPE CODE TESTS RESULT OUT OF REFERENCE UNITS RANGE LAB IP 2.2-4.6 mg/dL Inorg Phosphate 2.7 Result Comment: SLIGHTLY HEMOLYZED Performed By: #### C7C, IPB, MGO #### [facility] [address] [place] [id number] [place] [address] [place] [address] MAGNESIUM Collected: 06/20/2018 Status: F Source: [facility] 2:38 AM [facility] REPOSITORY TYPE CODE TESTS RESULT OUT OF REFERENCE UNITS RANGE LAB MG 1.6-2.6 mg/dL Magnesium 2.0 Result Comment: SLIGHTLY HEMOLYZED Performed By: #### C7C, IPB, MGO #### [facility] [address] [place] [id number] [place] [address] [place] [id number] *POC GLUCOSE BATTERY Collected: 06/19/2018 Status: F Source: [facility] 8:56 PM [facility] REPOSITORY TYPE CODE TESTS RESULT OUT OF REFERENCE UNITS RANGE LAB GLUP 70-99 mg/dL Glucose (poc 88 device) Result Comment: No BRAVE per RN: PATIENT TYPE LAB PCSTYP *POC Capillary SAMPLE TYPE Blood *POC GLUCOSE BATTERY Collected: 06/19/2018 Status: F Source: [facility] 5:15 PM [facility] REPOSITORY TYPE CODE TESTS RESULT OUT OF REFERENCE UNITS RANGE LAB GLUP 70-99 mg/dL Glucose (poc 90 device) Result Comment: No BRAVE per RN: PATIENT TYPE LAB PCSTYP *POC Capillary SAMPLE TYPE Blood *POC GLUCOSE BATTERY Collected: 06/19/2018 Status: F Source: [facility] 12:01 PM [facility] REPOSITORY TYPE CODE TESTS RESULT OUT OF REFERENCE UNITS RANGE LAB GLUP 70-99 mg/dL Glucose (poc 88 device) Result Comment: No BRAVE per RN: PATIENT TYPE LAB PCSTYP *POC Capillary SAMPLE TYPE Blood POTASSIUM Collected: 06/19/2018 Status: F Source: [facility] 11:08 AM [facility] REPOSITORY TYPE CODE TESTS RESULT OUT OF REFERENCE UNITS RANGE LAB K 3.5-5.0 mmol/L Potassium 3.6 Performed By: #### KKO #### [facility] [address] [place], [place] [id number] [place] [address] [address] [place], [place] [address] HEMOGRAM (CBC AND Collected: 06/19/2018 Status: F Source: [facility] PLATELET) 1:18 AM [facility] REPOSITORY TYPE CODE TESTS RESULT OUT OF REFERENCE UNITS RANGE LAB WBC 3.98-10.04 K/uL WBC Count High 12.41 LAB RBC 3.93-5.22 M/uL Low RBC Count 3.77 LAB HGB 11.2-15.7 g/dL Low Hemoglobin 10.9 LAB HCT 34.1-44.9 % Hematocrit 34.8 LAB MCV 79.4-94.8 fL Mean Cell Volume 92.3 LAB MCH 25.6-32.2 pg Mean Cell Hgb 28.9 LAB MCHC 32.2-35.5 g/dL Low Mean Cell Hgb Conc 31.3 LAB RDW 11.7-14.4 % RBC High Distribution 14.6 LAB PLT 182-369 K/uL Platelet Count 293 LAB MPV 9.4-12.3 fL Low Mean Platelet Volume 9.3 LAB NRBC 0.0-0.2 /100 WBC NUCLEATED RBC 0.0 Performed By: #### HEMOGC, C7C, IPB, MGO #### [facility] [address] [place] [address] [facility] [address] [place], [place] [address] CHM7,CA Collected: 06/19/2018 Status: F Source: [facility] 1:18 AM [facility] REPOSITORY TYPE CODE TESTS RESULT OUT OF REFERENCE UNITS RANGE LAB BUN 7-22 mg/dL BUN 8 LAB NA 133-143 mmol/L Sodium 141 LAB K 3.5-5.0 mmol/L High Potassium 5.4 Result Comment: MODERATE HEMOLYSIS LAB CL 98-108 mmol/L Chloride High 109 LAB CO2 22-30 mmol/L Carbon Dioxide 22 LAB GLUC 70-99 mg/dL Glucose High 105 LAB CREA 0.50-1.20 mg/dL Creatinine 0.61 LAB GAP 7-17 mmol/L Anion Gap 15 LAB BC BUN/CREA Ratio 13 LAB CA 8.6-10.5 mg/dL Low Calcium 8.4 LAB OSMC 278-305 mOsm/kg Osmolality (Calc) 296 LAB GFR >60 mL/min/1.73sq M Est GFR,non >60 LAB GFRA >60 mL/min/1.73sq M Est GFR, >60 Performed By: #### HEMOGC, C7C, IPB, MGO #### [facility] [address] [place] [address] [place] [address] INORGANIC PHOSPHATE Collected: 06/19/2018 Status: F Source: [facility] 1:18 AM [facility] REPOSITORY TYPE CODE TESTS RESULT OUT OF REFERENCE UNITS RANGE LAB IP 2.2-4.6 mg/dL Inorg Phosphate 3.5 Result Comment: MODERATE HEMOLYSIS Performed By: #### HEMOGC, C7C, IPB, MGO #### [facility] [address] [place] [address] [place] [address] MAGNESIUM Collected: 06/19/2018 Status: F Source: [facility] 1:18 AM [facility] REPOSITORY TYPE CODE TESTS RESULT OUT OF REFERENCE UNITS RANGE LAB MG 1.6-2.6 mg/dL Magnesium 2.2 Result Comment: MODERATE HEMOLYSIS Performed By: #### HEMOGC, C7C, IPB, MGO #### [facility] [address] [place] [id number] [place] [address] [place] [address] *POC GLUCOSE BATTERY Collected: 06/18/2018 Status: F Source: [facility] 9:01 PM [facility] REPOSITORY TYPE CODE TESTS RESULT OUT OF REFERENCE UNITS RANGE LAB GLUP 70-99 mg/dL High Glucose (poc 145 device) Result Comment: No BRAVE per RN: PATIENT TYPE LAB PCSTYP *POC Capillary SAMPLE TYPE Blood *POC GLUCOSE BATTERY Collected: 06/18/2018 Status: F Source: [facility] [facility] 6:32 PM [facility] REPOSITORY TYPE CODE TESTS RESULT OUT OF REFERENCE UNITS RANGE LAB GLUP 70-99 mg/dL High Glucose (poc 145 device) Result Comment: No BRAVE per RN: PATIENT TYPE LAB PCSTYP *POC Capillary SAMPLE TYPE Blood PLATELET COUNT Collected: 06/18/2018 Status: F Source: [facility] 2:40 PM [facility] REPOSITORY TYPE CODE TESTS RESULT OUT OF REFERENCE UNITS RANGE LAB PLT 182-369 K/uL Platelet Count 326 LAB MPV 9.4-12.3 fL Mean Platelet 9.7 Volume Performed By: #### PLAT #### [facility] [address] [place] [address] *POC GLUCOSE BATTERY Collected: 06/18/2018 Status: F Source: [facility] 1:07 PM [facility] REPOSITORY TYPE CODE TESTS RESULT OUT OF REFERENCE UNITS RANGE LAB GLUP 70-99 mg/dL High Glucose (poc 154 device) Result Comment: No BRAVE per RN: PATIENT TYPE LAB PCSTYP *POC Arterial SAMPLE TYPE BLD GAS 9 Collected: 06/18/2018 Status: F Source: [facility] [facility] 10:30 AM [facility] REPOSITORY TYPE CODE TESTS RESULT OUT OF REFERENCE UNITS RANGE LAB PH 7.35-7.45 PH 7.35 LAB PCO2 32-48 mm Hg PCO2 35 LAB PO2 83-108 mm Hg PO2 227 High LAB BGHGB 11.2-15.7 g/dL BLD GAS 11.1 Low HGB LAB BGH 34.1-44.9 % BLD GAS 34 Low HCT LAB BASE 0-3.0 mmol/L Base Not Excess applicable LAB BASED 0-3.0 mmol/L Base 6.0 High Deficit LAB BGNA 133-143 mmol/L Whole 143 Blood Sodium LAB BGK 3.5-5.0 mmol/L Whole 3.0 Low Blood Potassium LAB BGICA 4.60-5.30 mg/dL Whole 4.48 Low Bld Ionized CA LAB BGGLU 70-99 mg/dL WHOLE 158 High BLD GLUC LAB HCO3 22-26 mmol/L 19 Low Bicarbonate LAB OSAT 94-98 % O2 100 High Saturation LAB SPECBG Specimen type Arterial LAB FIO2 % FIO2 Not applicable Performed By: #### GAS9 #### [facility] [address] [place] [address] [facility] [address] [place] [address] *POC GLUCOSE BATTERY Collected: 06/18/2018 Status: F Source: [facility] 6:35 AM [facility] REPOSITORY TYPE CODE TESTS RESULT OUT OF REFERENCE UNITS RANGE LAB GLUP 70-99 mg/dL High Glucose (poc 117 device) Result Comment: No BRAVE per RN: PATIENT TYPE LAB PCSTYP *POC Capillary SAMPLE TYPE Blood Observed: 06/10/2018 Status: F Source: [facility] TYPE AND CROSS - 9:45 AM [facility] PRE-OP [facility] REPOSITORY ABO/RH(D): O POSITIVE ANTIBODY SCREEN: NEGATIVE UNIT NUMBER: [id number] BLOOD COMPONENT TYPE: Red Cells, Leukoreduced_[id number] STATUS OF UNIT: REL FROM ALLOC TRANSFUSION STATUS: OK TO TRANSFUSE CROSSMATCH RESULT: Electronically Compatible UNIT NUMBER: [id number] BLOOD COMPONENT TYPE: Red Cells, Leukoreduced_[id number] STATUS OF UNIT: REL FROM ALLOC TRANSFUSION STATUS: OK TO TRANSFUSE CROSSMATCH RESULT: Electronically Compatible Performed By: #### XMPO #### [facility] [address] [place] [address] [place] [address] CBC WITH DIFF Collected: 06/10/2018 Status: F Source: [facility] 9:18 AM [facility] REPOSITORY TYPE CODE TESTS RESULT OUT OF REFERENCE UNITS RANGE LAB WBC 3.98-10.04 K/uL WBC Count 8.78 LAB RBC 3.93-5.22 M/uL RBC Count 4.49 LAB HGB 11.2-15.7 g/dL Hemoglobin 12.9 LAB HCT 34.1-44.9 % Hematocrit 40.7 LAB MCV 79.4-94.8 fL Mean Cell 90.6 Volume LAB MCH 25.6-32.2 pg Mean Cell 28.7 Hgb LAB MCHC 32.2-35.5 g/dL Mean Cell 31.7 Low Hgb Conc LAB RDW 11.7-14.4 % RBC 14.3 Distribution LAB PLT 182-369 K/uL Platelet 435 High Count LAB MPV 9.4-12.3 fL Mean 9.3 Low Platelet Volume LAB NRBC 0.0-0.2 /100 WBC NUCLEATED 0.0 RBC LAB DTYPE Electronic DIFFERENTIAL TYPE Differential LAB IGRE % IMMATURE 0.5 GRANS % LAB SEGS % NEUTROPHIL 62.8 SEGMENTED LAB LYM % LYMPHOCYTE 25.2 % LAB MON % MONOCYTE % 8.4 LAB EOS % EOSINOPHIL 2.3 % LAB BASO % BASOPHIL % 0.8 LAB IGABS <0.04 K/uL IMMATURE 0.04 High GRANS ABSOLUTE LAB SBANS 1.56-6.13 K/uL SEGS + 5.52 Bands,Absolute LAB ALYM 1.18-3.74 K/uL Abs Lymph 2.21 LAB AMONO 0.24-0.86 K/uL Abs [place] 0.74 LAB AEOS <0.37 K/uL Abs Eos 0.20 LAB ABASO <0.09 K/uL Abs Baso 0.07 Performed By: #### CBCDFM, CAC, CHM7C, IPC, MGCC #### [facility] [address] [place] [address] #### TELMA, A1CB #### [facility] [address] [place] [address] [address] [place] [address] PT/PTT [facility] Collected: 06/10/2018 Status: F Source: [facility] 9:18 AM [facility] REPOSITORY TYPE CODE TESTS RESULT OUT OF RANGE REFERENCE UNITS LAB PT 11.9-14.2 sec PT 12.9 LAB INR 0.9-1.1 INR 1.0 LAB PTT 24.0-34.3 sec PTT 26.2 Performed By: #### CBCDFM, CAC, CHM7C, IPC, MGCC #### [facility] [address] [place] [address] #### PTPTTC, A1CB #### [facility] [address] [place] [address] [place], [place] [id number] CALCIUM - [address] Collected: 06/10/2018 Status: F Source: [facility] 9:18 AM [facility] REPOSITORY TYPE CODE TESTS RESULT OUT OF REFERENCE UNITS RANGE LAB CA 8.6-10.5 mg/dL Calcium 9.2 Performed By: #### CBCDFM, CAC, CHM7C, IPC, MGCC #### [facility] [address] [place] [address] #### JOSHTTC, A1CB #### [facility] [address] [place] [address] [address] [place] [address] CHEM 7 - [address] Collected: 06/10/2018 Status: F Source: [facility] LAB 9:18 AM [facility] REPOSITORY TYPE CODE TESTS RESULT OUT OF REFERENCE UNITS RANGE LAB NA 133-143 mmol/L Sodium High 146 LAB K 3.5-5.0 mmol/L Low Potassium 3.4 LAB CL 98-108 mmol/L Chloride 106 LAB CO2 22-30 mmol/L Carbon Dioxide 27 LAB BUN 7-22 mg/dL BUN 15 LAB CREA 0.50-1.20 mg/dL Creatinine 0.65 LAB GLUC 70-99 mg/dL Glucose High 108 LAB GAP 7-17 mmol/L Anion Gap 16 LAB GFR >60 mL/min/1.73 sqM Est GFR,non >60 [place] LAB GFRA >60 mL/min/1.73 sqM Est GFR, >60 LAB OSMC 278-305 mOsm/kg Osmolality 304 (Calc) Performed By: #### CBCDFM, CAC, CHM7C, IPC, MGCC #### [facility] [address] [place] [address] #### PTPSANDOVALC, A1CB #### [facility] [address] [place] [address] [address] [place] [address] INORG PHOSPHATE - Collected: 06/10/2018 Status: F Source: [facility] BALA LAB 9:18 AM [facility] REPOSITORY TYPE CODE TESTS RESULT OUT OF REFERENCE UNITS RANGE LAB IP 2.2-4.6 mg/dL Inorg Phosphate 3.1 Performed By: #### CBCDFM, CAC, CHM7C, IPC, MGCC #### [facility] [address] [place], [place] [address] #### PTPTTC, A1CB #### [facility] [address] [place] [id number] [place] [address] [place] [address] MAGNESIUM - BALA CHANDLER Collected: 06/10/2018 Status: F Source: [facility] LAB 9:18 AM [facility] REPOSITORY TYPE CODE TESTS RESULT OUT OF REFERENCE UNITS RANGE LAB MG 1.6-2.6 mg/dL Magnesium 2.2 Performed By: #### CBCDFM, CAC, CHM7C, IPC, MGCC #### [facility] [address] [place], [place] [address] #### PTPTTC, A1CB #### [facility] [address] [place] [address] [place] [address] HEMOGLOBIN A1C Collected: 06/10/2018 Status: F Source: [facility] 9:18 AM [facility] REPOSITORY TYPE CODE TESTS RESULT OUT OF REFERENCE UNITS RANGE LAB A1C 4.7-5.6 % High Hemoglobin A1C 6.0 LAB EAG mg/dL Estimated 126 Average Glucose Performed By: #### CBCDFM, CAC, CHM7C, IPC, MGCC #### [facility] [address] [place], [place] [address] #### PTPTTC, A1CB #### [facility] [address] [place] [address] [place] [address] URINALYSIS W REFLEX Collected: 06/10/2018 Status: F Source: [facility] CULTURE -BALA CHANDLER 9:18 AM [facility] REPOSITORY TYPE CODE TESTS RESULT OUT OF REFERENCE UNITS RANGE LAB 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 Appearance Urine Clear LAB SPGR 1.001-1.035 Specific [place] urine 1.020 LAB UGL Negative mg/dL Glucose Urine Negative LAB UKET Negative Ketones Urine Negative LAB UBLD Negative Blood Urine Negative LAB UPH 5.0-7.0 pH Urine 5.5 LAB UPR Negative mg/dL Protein Urine Negative LAB UNTR Negative Nitrites Urine Negative LAB ULEU Negative Leukocyte Esterase Negative LAB COLR Yellow Color Yellow LAB UURO <2.0 EU/dL Urobilinogen urine 0.2 LAB UWBC 0-5 /HPF WBC Urine 0-5 LAB URBC 0-2 /HPF RBC Urine 0-2 LAB BACT Absent Bacteria Absent LAB EPIS /HPF Squamous Epithelial 1+ LAB UCOM COMMENT URINE None Performed By: #### URN1C #### [facility] [place] [address] [place], [place] [address] Observed: 06/10/2018 Status: F Source: [facility] SCREEN: RESP STAPH 9:18 AM [facility] (HIGH RISK SURGERY) [facility] REPOSITORY NARES: POSITIVE POSITIVE This test was performed using a real time PCR assay. Results should be interpreted in conjunction with other clinical and laboratory findings. A positive result does not necessarily indicate the pr esence of viable organism. This test should not be used as a test of cure. For E-swab specimens, this test was developed and its performance characteristics determined by the Clinical Microbiology Laboratory at [facility]. It has not b een cleared or approved by the FDA.The laboratory is regulated under CLIA as qualified to perform high-complexity testing. This test is used for clinical purposes. It should not be regarded as investigational or for research. Performed By: #### SCRSB #### [place] [address] ORTHOPEDIC VISIT Observed: 06/01/2018 Status: F Source: [facility] RE[facility] 9:06 PM [facility] REPOSITORY [facility] [place] [address] OFFICE VISIT Date of Service: 06/01/18 MR#: [id number] Acct: [id number] Name: KELLY ROTHMAN Rep #: [id number] : 1955 Provider: Cintia Weinberg MD Age/Sex: 62/F [place] [facility] [place]: Signed Intake Intake Visit Reasons: LOW BACK PAIN Allergies tioconazole [From Monistat 1 (tioconazole)] Allergy (Verified 05/03/18 09:29) Unknown Medications Albuterol Inhaler [Ventolin Hfa (SP)] 1 - 2 puff INHALATION Q4H PRN PRN 06/04/17 [History Confirmed 05/03/18] Cholecalciferol (Vitamin D3) [Vitamin D3] 5,000 unit PO DAILY 06/04/17 [History Confirmed 05/03/18] Ibuprofen 800 mg PO DAILY 06/04/17 [History Confirmed 05/03/18] Levothyroxine [Synthroid] 200 mcg PO DAILY 06/04/17 [History Confirmed 05/03/18] Metformin HCl [Metformin HCl ER] 500 mg PO DAILY 06/04/17 [History Confirmed 05/03/18] Montelukast Sodium [Singulair] 10 mg PO QHS 06/04/17 [History Confirmed 05/03/18] Cyclobenzaprine [Flexeril] 5 mg PO DAILY 11/02/17 [History Confirmed 05/03/18] PFS Social History Smoking Status: Never smoker HPI LOW BACK PAIN: Details: KELLY ROTHMAN is a 62 year old RHD F referred by Dr. Bhat who presents with 40% back pain and 60% left greater than right buttock, anterior thigh ache and anterolateral leblanc and diffuse foot paresthesias for the past 2 years. She states her symptoms are worse with standing and walking and improved with sitting. She has had caudal epidural steroid injections in 04/2018 and 01/2018. She has had facet injections and ablations. She states the DESIRAE helped for about 3 weeks. The facet injections did not help. She is currently taking NSAIDs, tylenol and topiramate. This is prescribed by Dr. Bhat's nurse. She tried diclofenac, gabapentin and lyrica, but was unable to tolerate due to swelling. She has tried PT in the last year without relief. She states a TENS unit helps some. She has had no aqua therapy. She has urinary urgency and intermittent perineum paresthesias that have been present for several weeks. She denies bowel issues. She intermittently uses a cane. She denies difficulty with hand dexterity. She denies constitutional symptoms. She has DM, hypothyroidism, seasonal allergies, asthma and prior laparoscopy. 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 She denies nicotine use. Ortho Exam Spine Neuro: Yes Clonus (none bilaterally), Rivera's (negative bilaterally), Babinski (downgoing bilaterally) and Straight Leg Raise (negative bilaterally) General: alert, oriented x3 Skin: Yes dysraphism (negative) Capillary Refill <2sec: Yes Palpable Pulses: 2+ dp/pt pulses Gait: antalgic, other (heel and toe stand) Motor: strength 5/5 throughout Sensory Exam: other (decreased sensation in the bilateral calves and feet) DTR's: Rt Triceps: 2+, Lt Triceps: 2+, Rt Biceps: 2+, Lt Biceps: 2+, Rt Brachioradialis: 2+, Lt Brachioradialis: 2+, Rt Patellar: 1+, Lt Patellar: 1+, Rt Ankle: 1+, Lt Ankle: 1+ Plantar Reflexes: Downgoing: bilateral Coordination: Romberg test normal, tandem gait normal (unable to tandem due to body habitus) SPINE TESTING CERVICAL THORACIC LUMBAR SLR: Negative Musculoskeletal General: Yes normal posture (positive sagittal balance) Cervical Spine: cervical ROM normal Thoracic/Lumbar Spine: pain with thoraco-lumbar ROM, paraspinal tenderness, thoraco-lumbar ROM limited (worse with lumbar extension than flexion) Strength 0=absent - 5=normal Deltoid R (C5): 5, Deltoid L (C5): 5, R Bicep (C5-6): 5, L Bicep (C5-6): 5, R Wrist Extensor (C6): 5, L Wrist Extensor (C6): 5, R Tricep (C7): 5, L Tricep (C7): 5, R Finger Flexors (C8): 5, L Finger Flexors (C8): 5, R First Dorsal Interossei (C8): 5, L First Dorsal Interossei (C8): 5, R Hip Flexor (L1-3): 5, L Hip Flexor (L1-3): 5, R Quadriceps (L2-4): 5, L Quadriceps (L2-4): 5, R Anterior Tibialis (L4-5): 5, L Anterior Tibialis (L4- 5): 5, R EHL (L5): 4, L EHL (L5): 4, R Hamstrings (L5-S1): 5, L Hamstrings (L5-S1): 5, GS (S1): 5, L GS (S1): 5, R Peroneals (S1): 5, L Peroneals (S1): 5 Assessment AND Plan Problems 1. Spinal stenosis, lumbar region with neurogenic claudication M48.062 Plan Imaging: XR lumbar spine 06/01/2018 reveals diffuse spondylosis with L3-4 anterolisthesis, slight coronal asymmetry MRI lumbar spine CD 12/03/2017 reveals diffuse spondylosis with L3-4 anterolisthesis with severe spinal stenosis. multilevel foraminal stenosis I/R/P: 1. back pain 2. bilateral leg pain 3. urinary urgency, chronic 4. DM, prediabetic 5. BMI 43 Ms. Rothman presents with back pain and bilateral leg pain in the setting of lumbar spinal stenosis with spondylolisthesis. The natural history and course of the symptomatology of lumbar spinal stenosis was discussed in detail with the patient. I answered all questions regarding the mode of onset, pathophysiology, symptoms, imaging findings, treatment options (both non-operative and operative) regarding her diagnosis. She has failed nonoperative treatment to include therapy, injections and medications. Recommend an L3-4 laminectomy with instrumented fusion, possible interbody fusion, allograft and autograft. She will need OPAC in [place]. Provided aqua therapy to aid with core stretching. Provided prednisone taper. Reviewed signs and symptoms of decline and to report to ER if this occurs. Follow up in [place] for consent. Plan of care discussed. All questions answered. The patient verbalized understanding of the disease process and agreed to the treatment plan formulated for this visit. Orders Orders: Coding Level of Care Code Off vis,new,level 4 Diagnoses Spinal stenosis, lumbar region with neurogenic claudication M48.062 06/01/186 <Electronically signed by Cintia Weinberg MD> Date Cintia Weinberg MD Cosigner Signature: Date (if applicable) CC: Jan Bhat L/S SPINE COMP/W Observed: 06/01/2018 Status: F Source: TRUDY BENDING VIEWS 12:49 PM [facility] REPOSITORY [facility] Imaging Services [address] [place] [address] L/S Spine Comp/w Bending Views MR#: [id number] Acct: [id number] Name: KELLY ROTHMAN Rep #: [id number] : 1955 F 62 From: Mendy Rodriguez MD PCP: Chaparro Steinberg MD Status: REG CLI Study: L/S Spine Comp/w Bending Views Date of Exam: 06/01/18 Exam# [id number] Ordering Dr: Cintia Weinberg MD STUDY: X-RAY - LUMBOSACRAL SPINE REASON FOR EXAM: Female, 62 years old. EXTREME LOW BACK PAIN. PT VERY UNSTABLE ON HER FEET AND SOB. D/T BODY HABITUS AND INSTABILITY BEST FILMS POSSIBLE DR WANTED THEM UPRIGHT TECHNIQUE: 7 view(s) of the lumbosacral spine were obtained. COMPARISON: May 08 2017 x-ray lumbar spine is the only comparison available with images. FINDINGS: There is reversal of the normal lumbar lordosis. There is a new rotatory levoscoliosis of the upper lumbar spine. There is grade 1 anterolisthesis at L3-4. This may be slightly worsened in extension. There is demineralization of the lumbar vertebrae. There is multi-level degenerative disc disease with multi-level disc space narrowing. There is degenerative arthrosis of the sacroiliac joint with articular joint space narrowing and spur formation. This is mildly worsened. Normal visualized soft tissue structures. RAD/L/S Spine Comp/w Bending Views IMPRESSION: Worsened degenerative disc disease. New levoscoliosis. New reversal of lordosis. Suggestion of L3-4 dynamic instability. 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 OPERATIVE REPORT Observed: 05/03/2018 Status: F Source: TRUDY 11:17 AM [facility] Medical Records Department [address] [place] [address] Operative Report 05/03/18 1114 MR#: [id number] Acct: [id number] Name: KELLY ROTHMAN Rep #: [id number] : 1955 62 From: Jan Bhat MD PCP: Chaparro Steinberg MD Status: REG [facility] Y Location: [place] [address] Problem List (1) Lumbar degenerative disc disease Status: Chronic (2) Lumbar radiculopathy Status: Chronic (3) Lumbar stenosis Status: Chronic Report of Operation Date of Procedure: 05/03/18 Pre-Operative Diagnosis: Lumbosacral radiculopathy, lumbosacral degenerative disc disease, lumbosacral spinal stenosis Post-Operative Diagnosis: Lumbosacral radiculopathy, lumbosacral degenerative disc disease, lumbosacral spinal stenosis Surgery/Procedure Performed:: Caudal epidural steroid injection Description of Surgical Findings:: PROCEDURE: Caudal epidural steroid injection PREOPERATIVE DIAGNOSIS: Lumbosacral radiculopathy, lumbosacral degenerative disc disease, lumbosacral spinal stenosis POSTOPERATIVE DIAGNOSIS: Lumbosacral radiculopathy, lumbosacral degenerative disc disease, lumbosacral spinal stenosis ANESTHESIA: MAC COMPLICATIONS: None BLOOD LOSS: Minimal PROCEDURE IN DETAIL: History and physical today was reviewed. Risks and benefits of the procedure were explained. The patient understood, agreed to our procedure, and informed consent was obtained. IV inserted per routine protocol. The patient was taken to the operating room, placed in a prone position with a pillow positioned underneath the abdomen. The lower back and tailbone area was prepped and draped in a sterile fashion using iodine 3 under fluoroscopy guidance on the lateral view the caudal space was identified skin and subcutaneous tissue anesthetized approximately 3 cc of 1% lidocaine using a 25- gauge regular needle under direct visualization with fluoroscopy on the lateral approach using a 22-gauge 3-1/2 inch spinal needle the needle was advanced via the skin through the sacral hiatus tip of the needle passed through the sacrococcygeal ligament advanced approximately S4 area after negative aspiration for blood or CSF a total of 3 cc of contrast were injected to confirm correct placement of the needle as well as cephalad spread the spread was followed to approximately L5 area after confirmation of AP as well as lateral view and repeated negative aspiration a total of 15 cc of preservative-free 0.125% Marcaine with 80 mg of Depo-Medrol were injected easily the needle was then removed intact patient experienced no sinus symptoms intrathecal or intravascular injection patient experienced no paresthesia the procedure was completed without any apparent difficulty any complication the patient appeared to tolerate well. ASSESSMENT AND PLAN: This is a 62-year-old Female with lumbosacral radiculopathy, lumbosacral degenerative disc disease, lumbosacral spinal stenosis status post caudal epidural steroid injection. The patient will continue her current medications. The patient will follow in approximately 2 weeks for possible repeat of the procedure if indicated. 05/03/18 1117 <Electronically signed by Jan Bhat MD> Date Jan Bhat MD CC: Jan Bhat; Chaparro Steinberg MD Signed FLUOR GUIDANCE FOR Observed: 05/03/2018 Status: F Source: MORNING SUN SPINE INJ 12:40 AM [facility] REPOSITORY [facility] Imaging Services [address] [place] [address] Fluor Guidance for Spine Inj MR#: [id number] Acct: [id number] Name: KELLY ROTHMAN Rep #: [id number] : 1955 F 62 From: Chuck Salazar MD PCP: Chaparro Steinberg MD Status: [facility] Study: Fluor Guidance for Spine Inj Date of Exam: 05/03/18 Exam# [id number] Ordering Dr: Jan Bhat MD PROCEDURE: Caudal block. DATE OF EXAMINATION: May 03, 2018 INDICATION: Female, 62 years old. Chronic back pain. FLUOROSCOPY TIME (if supplied): (0:04) minutes/seconds A caudal block was performed by the pain management physician. The spinal needle is seen along the posterior midportion of the sacrum. RAD/Fluor Guidance for Spine Inj IMPRESSION: Fluoroscopic services provided for caudal block. Electronically Signed: Chuck Salazar MD at 8:01 EDT Tel [phone], Service support , CC: Jan Bhat; Chaparro Steinberg MD Stoker Mechanic: Signed OPERATIVE REPORT Observed: 02/01/2018 Status: F Source: TRUDY 3:42 PM [facility] REPOSITORY [facility] Medical Records Department [address] [place] [address] Operative Report 02/01/18 1540 MR#: [id number] Acct: [id number] Name: KELLY ROTHMAN Rep #: [id number] : 1955 62 From: Jan Bhat MD PCP: Chaparro Steinberg Status: DEP [facility] Y Location: [facility] Problem List (1) Lumbar degenerative disc disease Status: Chronic (2) Lumbar radiculopathy Status: Chronic (3) Lumbar stenosis Status: Chronic Report of Operation Date of Procedure: 02/01/18 Pre-Operative Diagnosis: Lumbosacral radiculopathy, lumbosacral degenerative disc disease, lumbosacral spinal stenosis Post-Operative Diagnosis: Lumbosacral radiculopathy, lumbosacral degenerative disc disease, lumbosacral spinal stenosis Surgery/Procedure Performed:: Caudal epidural steroid injection Description of Surgical Findings:: Procedure: Caudal epidural steroid injection Preoperative diagnosis: Lumbosacral radiculopathy, lumbosacral degenerative disc disease, lumbosacral spinal stenosis Postoperative diagnosis:Lumbosacral radiculopathy, lumbosacral degenerative disc disease, lumbosacral spinal stenosis Anesthesia: MAC Blood loss: Minimal Complications: None Procedure in detail: History and physical today was reviewed risk and benefits of procedure explained the patient understood and agreed to procedure informed consent was obtained IV inserted per routine protocol patient was taken to the operating room placed in the prone position with a pillow position underneath the abdomen the lower back and tailbone area was prepped and draped in a sterile fashion using iodine 3 under direct visualization with fluoroscopy on the lateral view the caudal space was identified skin and subcutaneous tissue anesthetized approximately 3 cc of 1% lidocaine using a 25-gauge regular needle under direct visualization fluoroscopy on the lateral view using a 22-gauge 3-1/2 inch spinal needle the needle was advanced via the skin through the sacral hiatus tip of needle passed through the sacrococcygeal ligament advanced approximately S4 area after negative aspiration for blood or CSF a total of 3 cc of contrast were injected to confirm correct placement of the needle as well as cephalad spread the spread was followed to approximately L5 area after repeated confirmation AP as well as lateral view and repeated negative aspiration a total of 15 cc of preservative- free 0.125% Marcaine with 80 mg of Depo-Medrol were injected easily the needle was then removed intact patient experienced no sinus symptoms intrathecal or intravascular injection patient experienced no paresthesia the procedure was completed without any apparent difficulty any complication the patient appeared to tolerate well. Assessment and plan: This is a 62-year-old female with lumbosacral radiculopathy lumbosacral degenerative disc disease lumbosacral spinal stenosis status post caudal epidural steroid injection patient will continue her current medications patient will follow approximately 2 weeks for possible repeat of the procedure if indicated. 02/01/18 1542 <Electronically signed by Jan Bhat MD> Date Jan Bhat MD CC: Jan Bhat; Chaparro Steinberg Signed BEDSIDE GLUCOSE Collected: 02/01/2018 Status: F Source: MORNING SUN 8:31 AM [facility] REPOSITORY TYPE CODE TESTS RESULT OUT OF REFERENCE UNITS RANGE LAB L501.080 70-110 mg/dL High BEDSIDE GLU 112 Result Comment: MANAGEMENT OF PATIENT CARE PER NURSING PROTOCOL Performed By: #### L501.080 #### [facility] Point of Care [address] [facility] [place] [address] FLUOR GUIDANCE FOR Observed: 02/01/2018 Status: F Source: MORNING SUN SPINE INJ 3:46 AM [facility] REPOSITORY [facility] Imaging Services [address] [place] [address] Fluor Guidance for Spine Inj MR#: [id number] Acct: [id number] Name: KELLY ROTHMAN Rep #: [id number] : 1955 F 62 From: Chuck Salazar MD PCP: Chaparro Steinberg Status: [facility] Study: Fluor Guidance for Spine Inj Date of Exam: 02/01/18 Exam# [id number] Ordering Dr: Jan Bhat MD PROCEDURE: Caudal block. DATE OF EXAMINATION: February 01, 2018. INDICATION: Female, 62 years old. Chronic low back pain. FLUOROSCOPY TIME (if supplied): (0:05) minutes/seconds Intraoperative imaging provided for caudal block. RAD/Fluor Guidance for Spine Inj IMPRESSION: Intraoperative imaging provided for caudal block. Electronically Signed: Chuck Salazar MD at 14:45 EDT Tel [phone], Service support , CC: Jan Bhat; Chaparro Steibnerg Stoker Mechanic: Signed ALLERGIES ALLERGIES DATE TYPE / CODE NAME / CODE REACTION SEVERITY SOURCE 08/10/2018 Drug tioconazole/ Unknown Unknown [facility] Allergy/4160 [id number]([facility] 31987(SNOMED XNORM) Repository CT) ENCOUNTERS ENCOUNTERS ADMIT/DISCHARGE ACCOUNT NUMBER ADMITTING ENCOUNTER LOCATION SOURCE CLASS 09/28/2018 [id number] Ambulatory [facility] ding:HPRAD Repository 09/28/2018/09/28/20 [id number] Ambulatory BMSBuilding: [place] 18 BMS[facility] Repository 08/10/2018 [id number] Ambulatory BMSBuilding: [place] [facility]MS[facility] Repository 08/10/2018 [id number] Ambulatory [facility] ding:HPRAD Repository 08/10/2018/08/10/20 [id number] Ambulatory BMSBuilding: [place] 18 BMS.[facility] Repository 06/18/2018/06/24/20 [id number] [place], Inpatient Building:[address] Encounter Room: [place] [address]Bed: A [facility] Repository 06/10/2018 [id number] Ambulatory Building:[place] [facility] Repository 06/10/2018 [id number] [facility] 06/10/2018 [id number] Ambulatory Building:[facility] Repository 06/01/2018 [id number] Ambulatory Building:[facility] Repository 06/01/2018 [id number] Ambulatory [place] [facility] ding:HPRAD Repository 06/01/2018/06/01/20 [id number] Ambulatory BMSBuilding: [place] 18 BMS[facility] Repository 05/03/2018/05/03/20 [id number] Ambulatory [place] 18 [facility] ding:SDCRoom Repository : AC07 02/01/2018/02/02/20 [id number] Ambulatory [place] 18 [facility] ding:SDC Repository 12/03/2017 [id number] Ambulatory Building:[facility] Repository PAYERS PAYERS ENCOUNTER GUARANTOR PAYER SUBSCRIBER SOURCE 09/28/2018 KELLY A Primary KELLY A [place] [id number] Insurance:ANTHEMPolic BARICKMANDOB: [facility] y [place]: [id number] [id number] Repository [address]Oqp: (330) Date:0220-42-34BE [phone] () [id number] [place] [address]OY: 09/28/2018 Secondary NOT GIVENUNK [place] Insurance:SELF PAY [facility] Number: Effective Repository Date:2018-09-28 09/28/2018 KELLY A Primary KELLY A [place] [id number] Insurance:ANTHEMPolic BARICKMANDOB: [facility] y Number: [id number], [place] [id number] Repository [address]Avh: (330) Date:4285-88-73II [phone] () 924258QHWVLTB, [place] [address]KK: 09/28/2018 Secondary NOT GIVENUNK [place] Insurance:SELF PAY [facility] Number: Effective Repository Date:2018-09-28 08/10/2018 KELLY A Primary KELLY A [place] [id number] Insurance:ANTHEMPolic BARICKMANDOB: [facility] y Number: [id number] [place], [place] [id number] Repository [address]Fxo: (330) Date:2980-47-00RV [phone] () [id number] [place] [address]CW: 08/10/2018 Secondary NOT GIVENUNK [place] Insurance:SELF PAY [facility] Number: Effective Repository Date:2018-05-12 08/10/2018 KELLY Grewal Primary KELLY Grewal [place] [id number] Insurance:ANTHEMPolic BARICKMANDOB: [facility] y Number: [id number] [place], [place] [id number] Repository [address]Sfe: (330) Date:1718-60-65PW [phone] () [address] [place] [address]BG: 08/10/2018 Secondary NOT GIVENUNK [place] Insurance:SELF PAY [facility] Number: Effective Repository Date:2018-08-10 08/10/2018 KELLY Grewal Primary KELLY Grewal [place] [id number] Insurance:ANTHEMPolic BARICKMANDOB: [facility] y Number: [id number] [place], [place] [id number] Repository 424[address]Fts: (330) Date:6317-53-13IU [phone] () [id number] [place] [address]AG: 08/10/2018 Secondary NOT GIVENUNK [place] Insurance:SELF PAY [facility] Number: Effective Repository Date:2018-08-10 06/18/2018 KELLY Grewal Primary KELLY Grewal [facility] BARICKMANDOB: Insurance:ANTHEM HMO BARICKMANDOB: [place] W O POSPolicy Number: [id number] [facility] [id number] W [place], [place] Date:3762-35-29DbppEl [place], [place] Repository [address]Kdn: (330) Name:MANAGED CARE [id number]: (HP) [phone] (HP) 06/10/2018 [address] [facility] BARICKMANDOB: [facility] BARICKMANDOB: [place] W PPO POSPolicy Number: [id number] [facility] [id number] W [place], [place] Date:7627-84-67Anpe [place], [place] Repository [address]Jkz: (330) Name:MANAGED CARE [id number]: (HP) [phone] (HP) 06/10/[address] [facility] BARICKMANDOB: Insurance:[facility] BARICKMANDOB: [place] W O POSPolicy Number: [id number] [facility] [id number] [place], [place] Date:1652-57-31Xajl [place], [place] Repository [address]Rvs: (330) Name:MANAGED CARE [id number]: (HP) [phone] (HP) 06/10/[address] [facility] BARICKMANDOB: Insurance:[facility] BARICKMANDOB: [place] W PPO POSPolicy Number: [id number] [facility] [id number] [place], [place] Date:3023-59-25Sism [place], [place] Repository [address]Cmx: (330) Name:MANAGED CARE [id number]: (HP) [phone] (HP) 06/01/2018 KELLY Grewal Primary KELLY Grewal [place] [id number] W [facility] BARICKMANDOB: [facility] Number: [id number] [place], [place] [id number] Repository [address]Ddf: (330) Date:5581-27-36LB [phone] () [id number], [place] [address]DT: 06/01/2018 Secondary NOT GIVENUNK [place] Insurance:SELF PAY [facility] Number: Effective Repository Date:2018-06-01 06/01/2018 KELLY Grewal Primary KELLY Grewal [place] [id number] Insurance:ANTHEMPolic BARICKMANDOB: Community [place] y Number: [id number] [place], [place] [id number] Repository [address]Lrg: (330) Date:5539-80-11NP [phone] () [id number], [place] [address]AM: 06/01/2018 Secondary NOT GIVENUNK [place] Insurance:SELF PAY [facility] Number: Effective Repository Date:2018-06-01 05/03/2018 KELLY Grewal Primary KELLY Grewal [place] [id number] Insurance:ANTHEMPolic BARICKMANDOB: Community [place] y Number: [id number] [id number] Repository [address]Jrt: (330) Date:7135-00-84PC [phone] () 506237YSCKPSZ, [place] [address]MZ: 05/03/2018 Secondary NOT GIVENUNK [place] Insurance:SELF PAY [facility] Number: Effective Repository Date:2018-04-28 02/01/2018 Kelly Torre Primary Kelly Torre [place] [id number] Insurance:ANTHEMPolic BarickmanDOB: Community [place] y Number: [id number] Acres, [place] [id number] Repository [address]Swz: (330) Date:7198-35-79OS [phone] () 355759UOGIQTC, [place] [address]CF: 02/01/2018 Secondary NOT GIVENUNK [place] Insurance:SELF PAY [facility] Number: Effective Repository Date:2018-01-26
== END ==
PROVIDERS: Family Provider Family Medicine; PCP Family Medicine; Referring Provider Orthopaedic Surgery; Visit Provider Orthopaedic Surgery
DX: Z98.1 Arthrodesis status (principal)
CPT/HCPCS: 72100

== ENCOUNTER → 2019-01-11 08:23 | Outpatient (CLI) | payer BC, SELFPAY ==
[2018-05-03 09:34] VITALS: BMI 45.1
[2019-01-11 12:52] LABS: Anion Gap 8 (5-15); BUN 17 mg/dL (7-18); BUN/Creat Ratio 22.5 RATIO (10-20); Calcium,Total 8.2 mg/dL (8.5-10.1); Chloride 107 mmol/L (98-107); Creatinine, Serum 0.76 mg/dL (0.55-1.02); EST Glomerular Filtration Rate 83 mL/min (>60); Est Glom Filt Rate - Afr Amer 100 mL/min (>60); Glucose 88 mg/dL (74-106); Potassium 4.2 mmol/L (3.5-5.1); Sodium Level 142 mmol/L (136-145); T4 Free Direct 1.08 ng/dL (0.76-1.46)
== END ==
PROVIDERS: Family Provider Family Medicine; PCP Family Medicine; Visit Provider Family Medicine
DX: R73.01 Impaired fasting glucose (principal); E03.9 Hypothyroidism, unspecified
CPT/HCPCS: 36415; 80048; 84439; 84443

== ENCOUNTER → 2019-01-11 09:00 | Outpatient (CLI) | payer BC, SELFPAY ==
[2018-05-03 09:34] VITALS: BMI 45.1
--- NOTE | 2019-01-11 09:02 | RAD_ITS ---
STUDY: X-RAY - LUMBAR SPINE REASON FOR EXAM: Female, 63 years old. Postop. TECHNIQUE: 2 view(s) of the lumbar spine were obtained. COMPARISON: September 28, 2018. FINDINGS: There is reversal of the normal lumbar lordosis. There is no substantial scoliosis. There is a normal alignment of the vertebrae. There is again seen posterior fusion of L2-L4. Hardware is intact. There is minimal endplate spondylosis most marked at L4-5. There is associated disc space narrowing at L4-5 and L5-S1 unchanged from prior exam. No spine fracture The soft tissue structures are unremarkable. RAD/Lumbar Spine 2 or 3 Views IMPRESSION: No interval change. Electronically Signed: Dino Wall DO at 11:44 EDT Tel [phone], Service support ,
== END ==
PROVIDERS: Family Provider Family Medicine; PCP Family Medicine; Referring Provider Orthopaedic Surgery; Visit Provider Orthopaedic Surgery
DX: Z98.1 Arthrodesis status (principal)
CPT/HCPCS: 72100

== ENCOUNTER → 2019-03-24 | Outpatient (CLI) | payer BC, SELFPAY ==
[2019-03-24 13:33] LABS: T4 Free Direct 1.28 ng/dL (0.76-1.46); Thyroid Stim Hormone (TSH) 1.24 uIU/mL (0.358-3.74)
== END | disposition home or self-care (01) ==
LOC: LAB.FUTURE 11:42
PROVIDERS: Family Provider Family Medicine; PCP Family Medicine; Visit Provider Family Medicine
DX: E03.9 Hypothyroidism, unspecified (principal)
CPT/HCPCS: 36415; 84439; 84443

== ENCOUNTER → 2019-06-14 08:03 | Outpatient (CLI) | payer BC, SELFPAY ==
--- NOTE | 2019-06-14 08:04 | RAD_ITS ---
STUDY: X-RAY - LUMBAR SPINE REASON FOR EXAM: Female, 63 years old. Postop TECHNIQUE: 2 view(s) of the lumbar spine were obtained. COMPARISON: Prior study of 01/11/2019 FINDINGS: There is straightening of the normal lumbar lordosis. There is no substantial scoliosis. There is a minimal grade 1 anterolisthesis of L3 relative to L4. There are posterior spinal fusion changes with rods and interpeduncular screws from L2 to L4. There is a disc spacer at the L3-4 level. There is multilevel disc space narrowing. There are status post laminectomy changes of L3. There is no evidence of fracture. The soft tissue structures are unremarkable. RAD/Lumbar Spine 2 or 3 Views IMPRESSION: Postoperative and degenerative changes as detailed above with no significant interval change. Electronically Signed: Wilfredo Camarena MD at 16:50 EDT , Service support ,
== END ==
PROVIDERS: Family Provider Family Medicine; PCP Family Medicine; Referring Provider Orthopaedic Surgery; Visit Provider Orthopaedic Surgery
DX: M54.16 Radiculopathy, lumbar region (principal)
CPT/HCPCS: 72100

== ENCOUNTER → 2020-01-02 10:57 | Outpatient (CLI) | payer BC, SELFPAY ==
[2020-01-02 12:46] LABS: Absolute Lymphocyte Count 1.55 X10^3/uL (0.83-4.51); Absolute Neutrophil Count 3.1 X10^3/uL (2.0-7.7); Basophil# 0.07 X10^3/uL; Basophil% 1.2 % (0-1); Eosinophil# 0.62 X10^3/uL; Eosinophils% 10.5 % (0-5); Hematocrit 40.6 % (37-47); Hemoglobin 12.6 g/dL (12.0-15.0); Lymphocyte # 1.55 X10^3/ul (4.0); Lymphocyte % 26.4 % (19-41); Mean Corpuscular Hgb 27.7 pg (27.0-32.0); Mean Corpuscular Volume 89.2 fL (81-99); Mean Platelet Vol. 9.1 fl (6.2-12.0); Monocyte# 0.55 X10^3/uL; Monocyte% 9.4 % (0-10); NRBC Flagged by Analyzer 0 % (0-5); Neutrophil # 3.08 X10^3/uL (2.7-7.7); Neutrophil % 52.3 % (47-70); Platelet Count 370 K/mm3 (150-450); RBC Distribution Width CV 13.8 % (11.6-14.6); RBC Distribution Width SD 45.4 fl (35.1-43.9); Red Blood Count 4.55 M/mm3 (4.2-5.4); White Blood Count 5.9 K/mm3 (4.4-11.0)
[2020-01-02 13:31] LABS: Anion Gap 6 (5-15); BUN 13 mg/dL (7-18); BUN/Creat Ratio 20.7 RATIO (10-20); Calcium,Total 8.5 mg/dL (8.5-10.1); Chloride 111 mmol/L (98-107); Creatinine, Serum 0.63 mg/dL (0.55-1.02); EST Glomerular Filtration Rate 102 mL/min (>60); Est Glom Filt Rate - Afr Amer 123 mL/min (>60); Glucose 87 mg/dL (74-106); Sodium Level 143 mmol/L (136-145); T4 Free Direct 1.49 ng/dL (0.76-1.46); Thyroid Stim Hormone (TSH) 0.48 uIU/mL (0.358-3.74)
[2020-01-02 16:18] LABS: Microalbumin,Random Urine 15.1 mg/L (NO RANGE EST.); Microalbumin:Creatinine Ratio 13.1 mg/g CRE (<30 mg/g CRE)
== END ==
PROVIDERS: PCP Family Medicine; Visit Provider Family Medicine
DX: E11.9 Type 2 diabetes mellitus without complications (principal); E03.9 Hypothyroidism, unspecified
CPT/HCPCS: 36415; 80048; 82043; 82570; 84439; 84443; 85025

== ENCOUNTER → 2020-01-12 11:19 | Outpatient (CLI) | payer BC, SELFPAY ==
--- NOTE | 2020-01-12 11:21 | BI_ITS ---
MAMMOGRAPHY - BILATERAL SCREENING REASON FOR EXAM: Female, 64 years old. Routine annual screening examination. PERTINENT HISTORY: Non-contributory. TECHNIQUE: Digital bilateral breast nazanin (3D mammographic acquisition) in the CC and MLO projections. 2-D mediolateral oblique (MLO) and craniocaudad (CC) views of both breasts were obtained. CAD: Full Field Digital Mammography with Computer Added Detection was performed. COMPARISON: Comparison is made with prior study dated October 05, 2014 and August 23, 2013. FINDINGS: Breast Composition: The breasts are heterogeneously dense, which may obscure small masses. There are no dominant masses or suspicious calcifications. No other significant abnormalities are identified. There has been no significant change since the prior study. BI/SCREEN MAMM (CAD) W/NAZANIN BILAT IMPRESSION: Stable bilateral screening mammogram. Yearly follow-up mammogram recommended. (A) ASSESSMENT CATEGORY: BIRADS Category 1: Negative. A letter regarding these results will be sent to the patient by the facility within 30 days. Approximately 10% of breast cancers are not detected by mammography. A normal mammogram should not delay biopsy of a clinically suspicious abnormality. [id number] Electronically Signed: Chuck Salazar, at 13:58 EDT , Service support ,
== END ==
PROVIDERS: PCP Family Medicine; Referring Provider Family Medicine; Visit Provider Family Medicine
DX: Z12.31 Encounter for screening mammogram for malignant neoplasm of breast (principal)
CPT/HCPCS: 77063; 77067

== ENCOUNTER → 2020-04-10 12:17 | Outpatient (CLI) | payer BC, SELFPAY | PROVIDERS: PCP Family Medicine; Referring Provider Family Medicine; Visit Provider Family Medicine | DX: Z20.828 Contact with and (suspected) exposure to other viral communicable diseases (principal) | CPT/HCPCS: 87635; U0003 ==

== ENCOUNTER → 2020-04-24 09:15 | Outpatient (CLI) | payer BC, SELFPAY | PROVIDERS: PCP Family Medicine; Referring Provider Family Medicine; Visit Provider Family Medicine | DX: U07.1 COVID-19 (principal) | CPT/HCPCS: 87635; G2023; U0003 ==

== ENCOUNTER → 2020-05-01 10:10 | Outpatient (CLI) | payer BC, SELFPAY | PROVIDERS: PCP Family Medicine; Referring Provider Family Medicine; Visit Provider Family Medicine | DX: U07.1 COVID-19 (principal) | CPT/HCPCS: 87635; G2023; U0003 ==

== ENCOUNTER → 2020-05-14 17:27 | Outpatient (CLI) | payer BC, SELFPAY | PROVIDERS: PCP Family Medicine; Referring Provider Family Medicine; Visit Provider Family Medicine | DX: U07.1 COVID-19 (principal) | CPT/HCPCS: 87635; 94799; U0003 ==

== ENCOUNTER → 2020-05-29 08:16 | Outpatient (CLI) | payer BC, SELFPAY ==
[2020-05-29 08:11] VITALS: BMI 45.1
--- NOTE | 2020-05-29 08:17 | RAD_ITS ---
STUDY: X-RAY - LUMBAR SPINE REASON FOR EXAM: Female, 64 years old. TWO YEAR POST OP CHECK TECHNIQUE: AP and lateral view(s) of the lumbar spine were obtained. COMPARISON: Comparison is made with prior study 06/14/2019. FINDINGS: There is straightening of the normal lumbar lordosis. There is no substantial scoliosis. Stable minimal anterior listhesis of L3 on L4 The patient is status post laminectomy and fusion at the L2-L3 and L3-L4 levels. There is multi-level degenerative disc disease with multi-level disc space narrowing. The soft tissue structures are unremarkable. RAD/Lumbar Spine 2 or 3 Views IMPRESSION: Degenerative changes of the spine, as detailed above. Stable appearance of the laminectomy and fusion at the L3-L4 and L4-L5 levels. Stable minimal anterior listhesis of L3 on L4. Electronically Signed: Chuck Salazar, at 10:53 EDT , Service support ,
== END ==
PROVIDERS: PCP Family Medicine; Referring Provider Orthopaedic Surgery; Visit Provider Orthopaedic Surgery
DX: Z98.1 Arthrodesis status (principal)
CPT/HCPCS: 72100

== ENCOUNTER → 2020-08-13 11:49 | Outpatient (CLI) | payer BC, SELFPAY ==
[2020-05-29 08:11] VITALS: BMI 45.1
--- NOTE | 2020-08-13 11:52 | RAD_ITS ---
STUDY: X-RAY CHEST REASON FOR EXAM: Female, 65 years old. Dyspnea since Covid-19 infection in March/April TECHNIQUE: PA and lateral views of the chest. COMPARISON: None. FINDINGS: The lungs are clear and expanded. There is no demonstrated pleural abnormality. Normal size heart. Normal mediastinum and osmany. Normal visualized pulmonary arteries. There is atherosclerotic tortuosity of the aortic arch and descending thoracic aorta. There are degenerative changes of the visualized thoracic spine. Fusion in the lumbar spine. Normal visualized ribs, clavicles, and shoulders. There is no demonstrated abnormality of the visualized soft tissue structures of the upper abdomen. RAD/Chest PA and Lateral IMPRESSION: No acute abnormality is seen. Electronically Signed: Chuck Salazar, at 11:59 EDT , Service support ,
== END ==
PROVIDERS: PCP Family Medicine; Referring Provider Family Medicine; Visit Provider Family Medicine
DX: B34.2 Coronavirus infection, unspecified (principal); R06.00 Dyspnea, unspecified
CPT/HCPCS: 71046

== ENCOUNTER → 2020-09-04 07:54 | Outpatient (CLI) | payer BC, SELFPAY ==
--- NOTE | 2020-09-05 13:26 | PFT ---
INTRODUCTION: The patient is a 65-year-old female that presents for pulmonary function studies secondary to a diagnosis of shortness of breath. Respiratory therapy reports good patient effort. Bronchodilators were used during testing. INTERPRETATION: Forced expiration spirometry demonstrates no evidence of a large airways obstructive ventilatory defect. There was a significant response to aerosolized bronchodilators noted. Spirograms are of good quality and plateau normally. Body plethysmography was performed and reveals a decreased TLC to 4.19 L, indicative of a mild restrictive ventilatory impairment. Diffusing capacity by single breath CO is reduced to 69% of predicted. IMPRESSION: Mild restrictive ventilatory impairment with symmetric reduction in diffusing capacity. Significant bronchodilator response was also noted.
== END ==
PROVIDERS: PCP Family Medicine; Referring Provider Internal Medicine Critical Care Medicine; Visit Provider Internal Medicine Critical Care Medicine
DX: R06.00 Dyspnea, unspecified (principal)
CPT/HCPCS: 94060; 94726; 94729

== ENCOUNTER → 2020-09-24 12:21 | Outpatient (CLI) | payer BC, SELFPAY ==
[2020-09-24 11:12] VITALS: BMI 46.3
[2020-09-24 13:22] LABS: Absolute Lymphocyte Count 1.59 X10^3/uL (0.83-4.51); Absolute Neutrophil Count 3.8 X10^3/uL (2.0-7.7); Basophil# 0.07 X10^3/uL; Basophil% 1.1 % (0-1); Eosinophil# 0.69 X10^3/uL; Eosinophils% 10.4 % (0-5); Hematocrit 40.9 % (37-47); Hemoglobin 12.9 g/dL (12.0-15.0); Lymphocyte # 1.59 X10^3/ul (4.0); Lymphocyte % 23.9 % (19-41); Mean Corp Hgb Conc 31.5 g/dL (32-36); Mean Corpuscular Hgb 29.3 pg (27.0-32.0); Mean Platelet Vol. 9.1 fl (6.2-12.0); Monocyte# 0.49 X10^3/uL; Monocyte% 7.4 % (0-10); NRBC Flagged by Analyzer 0 % (0-5); Neutrophil # 3.79 X10^3/uL (2.7-7.7); Neutrophil % 56.9 % (47-70); Platelet Count 357 K/mm3 (150-450); RBC Distribution Width CV 13.6 % (11.6-14.6); RBC Distribution Width SD 46.5 fl (35.1-43.9); White Blood Count 6.7 K/mm3 (4.4-11.0)
[2020-09-26 20:09] LABS: Alternaria alternata <0.10 kU/L (Class 0); Bermuda Grass <0.10 kU/L (Class 0); Bluegrass, Kentucky <0.10 kU/L (Class 0); Dog Epithelia 0.52 kU/L (Class I); Elm, American White <0.10 kU/L (Class 0); Oak, White <0.10 kU/L (Class 0); Plantain, English <0.10 kU/L (Class 0); Ragweed, Short/Common <0.10 kU/L (Class 0)
[2020-09-26 21:08] LABS: Mouse Urine <0.10 kU/L (Class 0)
[2020-09-28 03:07] LABS: Aspirgillus flavus Negative (Neg:<1:1); Aspirgillus fumigatus Negative (Neg:<1:1); Aspirgillus niger Negative (Neg:<1:1); Cytoplasmic Ab (C-ANCA) <1:20 titer (Neg:<1:20)
[2020-09-28 06:12] LABS: Immunoglobulin E 78 IU/mL (6-495); Perinuclear Ab (P-ANCA) <1:20 titer (Neg:<1:20)
== END ==
PROVIDERS: PCP Family Medicine; Referring Provider Nurse Practitioner Acute Care; Visit Provider Nurse Practitioner Acute Care
DX: R06.00 Dyspnea, unspecified (principal)
CPT/HCPCS: 36415; 82785; 85025; 86003; 86256; 86606

== ENCOUNTER → 2021-03-07 07:37 | Outpatient (CLI) | payer BC, SELFPAY ==
--- NOTE | 2021-03-07 07:40 | BI_ITS ---
MAMMOGRAPHY - BILATERAL SCREENING 3-D TOMOSYNTHESIS REASON FOR EXAM: Female, 65 years old. Routine screening PERTINENT HISTORY: No significant family history. TECHNIQUE: 2-D mammograms and 3-D Tomosynthesis of the breast (s) were performed. CAD was performed. COMPARISON: 01/12/2020 FINDINGS: The breast composition is heterogeneously dense that can obscure small breast masses. Scattered benign calcifications are seen. No dense spiculated masses or suspicious microcalcifications are identified. No architectural distortion is identified. There is no skin thickening or retraction. There has been no significant change since the prior study. BI/SCRN MAMM (CAD)W/NAZANIN BILAT IMPRESSION: No mammographic signs of malignancy. Routine yearly mammograms recommended. ASSESSMENT CATEGORY: BIRADS Category 2: Benign. A letter regarding these results will be sent to the patient by the facility within 30 days. FOLLOW UP RECOMMENDATION: Yearly follow up mammogram recommended. (A) Approximately 10% of breast cancers are not detected by mammography. A normal mammogram should not delay biopsy of a clinically suspicious abnormality. Electronically Signed: Candelario Engle MD at 8:36 EDT , Service support ,
== END ==
PROVIDERS: PCP Family Medicine; Referring Provider Family Medicine; Visit Provider Family Medicine
DX: Z12.31 Encounter for screening mammogram for malignant neoplasm of breast (principal)
CPT/HCPCS: 77063; 77067

== ENCOUNTER → 2021-04-08 09:34 | Outpatient (CLI) | payer BC, SELFPAY ==
[2021-03-07 10:19] VITALS: BMI 46.7
[2021-04-08 13:15] LABS: T4 Free Direct 1.07 ng/dL (0.76-1.46); Thyroid Stim Hormone (TSH) 6.67 uIU/mL (0.358-3.74)
[2021-04-08 13:17] LABS: Vitamin D,25 Hydroxy 21.8 ng/mL
== END ==
PROVIDERS: PCP Family Medicine; Referring Provider Family Medicine; Visit Provider Family Medicine
DX: E03.9 Hypothyroidism, unspecified (principal); E55.9 Vitamin D deficiency, unspecified
CPT/HCPCS: 36415; 82306; 84439; 84443

== ENCOUNTER 2021-10-30 08:20 | Outpatient (CLI) | payer OTHER, SELFPAY ==
[2021-10-30 08:34] LABS: Absolute Lymphocyte Count 1.74 X10^3/uL (0.83-4.51); Absolute Neutrophil Count 5.3 X10^3/uL (2.0-7.7); Basophil# 0.04 X10^3/uL; Basophil% 0.5 % (0-1); Hematocrit 41.7 % (37-47); Hemoglobin 12.8 g/dL (12.0-15.0); Lymphocyte # 1.74 X10^3/ul (0.83-4.51); Lymphocyte % 21.9 % (19-41); Mean Corp Hgb Conc 30.7 g/dL (32-36); Mean Corpuscular Hgb 27.4 pg (27.0-32.0); Mean Corpuscular Volume 89.3 fL (81-99); Mean Platelet Vol. 8.5 fl (6.2-12.0); Monocyte# 0.83 X10^3/uL; Monocyte% 10.5 % (0-10); NRBC Flagged by Analyzer 0 % (0-5); Neutrophil # 5.29 X10^3/uL (2.7-7.7); Neutrophil % 66.6 % (47-70); Platelet Count 365 K/mm3 (150-450); RBC Distribution Width CV 13.9 % (11.6-14.6); RBC Distribution Width SD 45.1 fl (35.1-43.9); Red Blood Count 4.67 M/mm3 (4.2-5.4); White Blood Count 7.9 K/mm3 (4.4-11.0)
== END 2021-10-30 23:59 | disposition short-term general hospital (02) ==
LOC: PAVLAB 08:22
PROVIDERS: PCP Family Medicine; Referring Provider Internal Medicine Critical Care Medicine; Visit Provider Internal Medicine Critical Care Medicine
DX: J45.50 Severe persistent asthma, uncomplicated (principal)
CPT/HCPCS: 36415; 85025

== ENCOUNTER 2021-11-13 14:51 | Outpatient (CLI) | payer OTHER, SELFPAY ==
--- NOTE | 2021-11-13 14:58 | ECHOD_ITS ---
Reason For Study: PHTN Procedure This was a 2D Doppler, Color Flow transthoracic echocardiogram. Exam performed in department. Left Ventricle Normal LV size. Left ventricular systolic function is normal. The estimated ejection fraction is 65 %. Stage 1 diastolic dysfunction. No regional wall motion abnormalities noted. Right Ventricle Normal RV size. Normal systolic function. Atria Normal left atrium. Normal right atrium. Mitral Valve Normal mitral valve. Tricuspid Valve Normal tricuspid valve. Mild (1+) tricuspid valve insufficiency. Pulmonary artery systolic pressure is 36 mmHg. Aortic Valve Normal aortic valve. Pulmonic Valve Normal pulmonic valve. Great Vessels Normal aortic root. The pulmonary artery is normal size. Normal inferior vena cava. Pericardium/Pleural No pericardial effusion. MMode/2D Measurements & Calculations LVIDd: 4.8 cm IVSd: 0.91 cm Ao root diam: 2.5 cm LVIDs: 2.5 cm LVPWd: 0.99 cm RVDd: 3.4 cm FS: 47.9 % LAV(MOD-bp): 45.6 ml LVAd ap4: 26.8 cm2 SV(MOD-sp4): 50.6 ml LAV(MOD-bp) Indexed: 19.2 ml/m2 LVLd ap4: 7.7 cm LAV(MOD-sp2): 42.8 ml EDV(MOD-sp4): 76.5 ml LAV(MOD-sp4): 47.1 ml EDV(sp4-el): 79.5 ml LVAs ap4: 13.7 cm2 LVLs ap4: 6.4 cm ESV(MOD-sp4): 26.0 ml ESV(sp4-el): 25.0 ml EF(MOD-sp4): 66.1 % EF(sp4-el): 68.5 % SV(sp4-el): 54.4 ml LA A4 area: 17.3 cm2 LA dimension(2D): 4.2 cm RA A4 area: 14.2 cm2 Doppler Measurements & Calculations MV E max tanner: 106.2 cm/sec Lat Peak E' Tanner: 7.4 cm/sec Med Peak E' Tanner: 8.8 cm/sec MV A max tanner: 123.0 cm/sec E/E' lat: 14.4 E/E' med: 12.1 MV E/A: 0.86 Ao V2 max: 178.2 cm/sec LV V1 max: 120.0 cm/sec PA V2 max: 111.0 cm/sec Ao max P.7 mmHg LV V1 max P.8 mmHg Ao V2 mean: 124.7 cm/sec Ao mean P.8 mmHg Ao V2 VTI: 36.4 cm TR max tanner: 283.6 cm/sec TR max P.2 mmHg ECHO/Echo Complete Interpretation Summary Normal LV size. Left ventricular systolic function is normal. The estimated ejection fraction is 65 %. Pulmonary artery systolic pressure is 36 mmHg. Stage 1 diastolic dysfunction. Ordering Physician: Sivakumar Oropeza Referring Physician: Chaparro Steinberg Performed By: Amelie Moreira, MARIE, RVT
== END 2021-11-13 23:59 | disposition short-term general hospital (02) ==
LOC: CVS 14:57
PROVIDERS: PCP Family Medicine; Referring Provider Internal Medicine Critical Care Medicine; Visit Provider Internal Medicine Critical Care Medicine
DX: J45.50 Severe persistent asthma, uncomplicated (principal); I27.20 Pulmonary hypertension, unspecified
CPT/HCPCS: 93306

== ENCOUNTER → 2022-05-02 | Outpatient (CLI) | payer OTHER, SELFPAY ==
[2022-05-02 10:47] LABS: Vitamin D,25 Hydroxy 37.5 ng/mL
[2022-05-02 10:52] LABS: Anion Gap 7 (5-15); BUN 16 mg/dL (7-18); BUN/Creat Ratio 19.3 RATIO (10-20); Calcium,Total 8.7 mg/dL (8.5-10.1); Chloride 109 mmol/L (98-107); Creatinine, Serum 0.83 mg/dL (0.55-1.02); EST Glomerular Filtration Rate 74 mL/min (>60); Est Glom Filt Rate - Afr Amer 89 mL/min (>60); Glucose 103 mg/dL (74-106); Sodium Level 140 mmol/L (136-145); Thyroid Stim Hormone (TSH) 2.37 uIU/mL (0.358-3.74)
== END | disposition home or self-care (01) ==
LOC: MTLAB 08:50
PROVIDERS: PCP Family Medicine; Referring Provider Family Medicine; Visit Provider Family Medicine
DX: E55.9 Vitamin D deficiency, unspecified (principal); E03.9 Hypothyroidism, unspecified
CPT/HCPCS: 36415; 80048; 82306; 84443

== ENCOUNTER → 2022-05-22 | Outpatient (CLI) | payer OTHER, SELFPAY ==
--- NOTE | 2022-05-22 08:11 | BI_ITS ---
MAMMOGRAPHY - BILATERAL SCREENING 3-D TOMOSYNTHESIS REASON FOR EXAM: Female, 66 years old. Annual screening mammogram. PERTINENT HISTORY: No significant family history. TECHNIQUE: 2-D mammograms and 3-D Tomosynthesis of the breast (s) were performed. CAD was performed. COMPARISON: 03/07/2021, 01/12/2020. FINDINGS: The breast composition is heterogeneously dense that can obscure small breast masses. Stable scattered benign calcifications and normal left. No dense spiculated masses or suspicious microcalcifications are identified. No architectural distortion is identified. There is no skin thickening or retraction. BI/SCRN MAMM (CAD)W/NAZANIN BILAT IMPRESSION: No interval change and no mammographic signs of malignancy. Routine yearly mammograms recommended. ASSESSMENT CATEGORY: BIRADS Category 2: Benign. A letter regarding these results will be sent to the patient by the facility within 30 days. FOLLOW UP RECOMMENDATION: Yearly follow up mammogram recommended. (A) Approximately 10% of breast cancers are not detected by mammography. A normal mammogram should not delay biopsy of a clinically suspicious abnormality. Electronically Signed: Justin Ware MD at 15:24 EDT ,
== END | disposition home or self-care (01) ==
LOC: OPBI 08:10
PROVIDERS: PCP Family Medicine; Referring Provider Family Medicine; Visit Provider Family Medicine
DX: Z12.31 Encounter for screening mammogram for malignant neoplasm of breast (principal)
CPT/HCPCS: 77063; 77067

== ENCOUNTER 2022-07-13 12:29 | Emergency (ER) | payer OTHER, SELFPAY ==
[2022-07-13 12:30] VITALS: BP 189/89; PULSE 95; RESP 16; TEMP 35.6; O2SAT 97; BMI 49.4
--- NOTE | 2022-07-13 12:41 | RAD_ITS ---
STUDY: X-RAY - RIGHT WRIST REASON FOR EXAM: Female, 67 years old. Trauma TECHNIQUE: 3 view(s) of the wrist were obtained. COMPARISON: None. FINDINGS: There is a comminuted and impacted distal radial metaphyseal fracture with dorsal displacement of the distal radius. There appears to be intra-articular involvement. The distal ulna is within normal limits. Normal radiocarpal articulation. Normal distal radioulnar articulation. Normal carpal bones. Normal carpal articulations. There is degenerative arthrosis of the carpometacarpal articulation of the thumb. Normal second through fifth carpometacarpal articulations. Normal visualized metacarpal bones. RAD/Wrist min 3 Views IMPRESSION: Distal radial fracture. Electronically Signed: Aisha Escalona MD at 13:36 EDT ,
[2022-07-13] MEDS: Ibuprofen 600 MG Tablet PO (13:01)
--- NOTE | 2022-07-13 14:10 | RAD_ITS ---
STUDY: X-RAY - RIGHT WRIST REASON FOR EXAM: Female, 67 years old. Post reduction TECHNIQUE: 2 view(s) of the wrist were obtained. COMPARISON: 07/13/2022 at 1:02 PM FINDINGS: Overlying bandage material obscures anatomic detail. There is a fracture within the distal radial metaphysis with improved alignment. Normal visualized distal ulna. Normal radiocarpal articulation. Normal distal radioulnar articulation. Normal carpal bones. Normal carpal articulations. There is degenerative arthrosis of the carpometacarpal articulation of the thumb. Normal second through fifth carpometacarpal articulations. Normal visualized metacarpal bones. The soft tissue structures are unremarkable. RAD/Wrist 2 Views IMPRESSION: Distal radial fracture with improved alignment. Electronically Signed: Aisha Escalona MD at 15:00 EDT ,
--- NOTE | 2022-07-13 14:46 | EDS_ITS ---
HPI History of Present Illness Chief Complaint: Upper Extremity Injury Narrative Narrative: Patient sustained a mechanical fall earlier today. She fell on her right wrist injuring her wrist. No head injury no elbow pain no other injuries. She has pain and deformity. [facility] Medical History Dyspnea History of 2019 novel coronavirus disease (COVID-19) Lumbar degenerative disc disease Lumbar facet arthropathy Lumbar radiculopathy Lumbar stenosis Lumbosacral spondylosis Home Medications albuterol sulfate 90 mcg/actuation aerosol inhaler 1 - 2 puff inhalation Q4H PRN PRN Sob &/Or Wheezing 06/04/17 [History Last Taken Unknown] metformin 500 mg 24 hr tablet,extended release 500 mg PO DAILY 06/04/17 [History Last Taken Unknown] montelukast 10 mg tablet 10 mg PO QHS 06/04/17 [History Last Taken Unknown] acetaminophen 500 mg tablet (Tylenol Extra Strength) 500 mg PO DAILY 08/29/20 [History Last Taken Unknown] meloxicam 15 mg tablet 15 mg PO DAILY 08/29/20 [History Last Taken Unknown] multivitamin 1 tab PO DAILY 08/29/20 [History Last Taken Unknown] albuterol sulfate 2.5 mg/3 mL (0.083 %) solution for nebulization 2.5 mg (3 mL) inhalation Q4H PRN Sob &/Or Wheezing #180 mL 09/24/20 [Rx Last Taken Unknown] spacer #1 ea 09/24/20 [Rx Last Taken Unknown] loratadine 10 mg tablet (Claritin) 10 mg PO DAILY 12/11/20 [History Last Taken Unknown] benralizumab 30 mg/mL subcutaneous syringe (Fasenra) 30 mg subcut Q8W 3 doses #1 mL 03/15/21 [Rx Last Taken Unknown] tiotropium bromide 1.25 mcg/actuation mist for inhalation (Spiriva Respimat) 2 puff inhalation DAILY #4 grams 05/20/21 [Rx Last Taken Unknown] levothyroxine 100 mcg tablet 200 mcg PO DAILY 06/27/21 [History Last Taken Unknown] budesonide-formoterol HFA 160 mcg-4.5 mcg/actuation aerosol inhaler (Symbicort) 2 puff inhalation BID #1 ea 02/25/22 [Rx Last Taken Unknown] hydrocodone-acetaminophen 5-325mg 5mg-325mg 1 tab PO Q6H PRN pain 3 days #12 tabs 07/13/22 [Rx Last Taken Unknown] Allergy/AdvReac Type Severity Reaction Status Date / Time tioconazole Allergy Unknown Verified 07/13/22 12:30 [From Monistat 1 (tioconazole)] Family History Mother Asthma COPD (chronic obstructive pulmonary disease) Father Skin cancer Prostate cancer Aunt Diabetes Heart disease Uncle Heart disease Diabetes Sister Alcoholic Surgical History h/o lumbar surgery Social History Smoking Status: Never smoker alcohol intake: current details: Rarely ROS ROS ED ROS Narrative Past medical history: Reviewed Medications: Reviewed Social history: Noncontributory Review of systems: Musculoskeletal: Right wrist injury Skin: No abrasions or lacerations Neurological: No weakness or paresthesias Hematologic: No easy bleeding or easy bruising EXAM Physical Exam Narrative Exam Narrative: Physical exam General: Patient appears somewhat uncomfortable. Head: Normocephalic, Atraumatic Neck: No C-spine tenderness Cardiovascular: Normal distal pulses Back: Nontender, Normal Inspection. Extremities: Right wrist shows tenderness over the distal radius region, there is a slight deformity. There is a contusion on the dorsum of the hand, neurovascularly intact. Skin: No abrasions, no lacerations Neurological: Normal strength and sensation Const Vital Signs: 07/13/22 12:30 Temperature 96.1 F L Temperature Source Temporal Pulse Rate 95 Respiratory Rate 16 Blood Pressure 189/89 H Blood Pressure Mean 122 Pulse Ox 97 Oxygen Delivery Method Room Air MDM MDM Radiography Diagnostic Testing: Clinical Impression(s) from Imaging Studies Wrist X-Ray 07/13/22 12:41 IMPRESSION: Distal radial fracture. Electronically Signed: Aisha Escalona MD at 13:36 EDT , X-ray right wrist initial read by me shows a distal radius fracture with dorsal angulation X-ray right wrist post reduction read by me shows adequate reduction of the fracture. Treatment and Re-Evaluation Narrative: The Colles' fracture was reduced and splinted, see procedure note. I talked to orthopedics for follow-up. Patient will be discharged in stable condition with analgesia. Procedures Other Procedures Procedure(s): Procedure #1. Hematoma block Verbal consent, I used a total of 7 mL of 1% lidocaine, I withdrew blood from the fracture fragment, I injected the lidocaine and good sedation was achieved Procedure #2. Reduction of the Colles' fracture, after adequate analgesia, I hyperextended the fracture and reduced it using manual traction. Patient tolerated procedure well verbal consent obtained Procedure #3: An AP splint was placed by me, Ortho-Glass. Patient tolerated procedure well. Verbal consent obtained. Post reduction x-ray showed adequate reduction. Discharge Plan Triage Chief Complaint: Upper Extremity Injury ED Provider: Marky Doe Dx/Rx/DC Orders Clinical Impression: Fall, Distal radial fracture Instructions: Wrist Fracture, ED Forearm Fracture with Reduction Prescriptions: New hydrocodone-acetaminophen 5-325 mg tablet 1 tab PO Q6H PRN (Reason: pain) 3 Days Qty: 12 0RF No Action meloxicam 15 mg tablet 15 mg PO DAILY acetaminophen [Tylenol Extra Strength] 500 mg tablet 500 mg PO DAILY multivitamin Tablet 1 tab PO DAILY (DME) spacer See Rx Instructions .ROUTE .MEDSUPPLY Qty: 1 0RF Rx Instructions: As directed albuterol sulfate 2.5 mg /3 mL (0.083 %) solution for nebulization 2.5 mg INHALATION Q4H PRN (Reason: Sob &/Or Wheezing) Qty: 180 3RF loratadine [Claritin] 10 mg tablet 10 mg PO DAILY montelukast 10 MG tablet 10 mg PO QHS albuterol sulfate 1 INHALER inhaler 1 - 2 puff inhalation Q4H PRN PRN (Reason: Sob &/Or Wheezing) metformin 500 MG tablet,ER chitra.retention 24 hr 500 mg PO DAILY levothyroxine 100 mcg tablet 200 mcg PO DAILY Fasenra 30 mg/mL syringe 30 mg SC Q8W Qty: 1 8RF Spiriva Respimat 1.25 mcg/actuation mist 2 puff INHALATION DAILY Qty: 4 6RF budesonide-formoterol [Symbicort] 160-4.5 mcg/actuation HFA aerosol inhaler 2 puff INHALATION BID Qty: 1 3RF Rx Instructions: administer with spacer, rinse mouth after each use Primary Care Provider: Chaparro Steinberg Referrals: Chaparro Steinberg MD [Primary Care Provider] - Chaparro Teresa MD [Med Staff - Active Staff] - 2 Days Disposition Disposition: Home, Self Care
== END 2022-07-13 15:24 | disposition home or self-care (01) ==
PROVIDERS: Emergency Provider Emergency Medicine; PCP Family Medicine; Visit Provider Emergency Medicine
DX: S52.501A Unspecified fracture of the lower end of right radius, initial encounter for closed fracture (principal); W19.XXXA Unspecified fall, initial encounter; Z86.16 Personal history of COVID-19
CPT/HCPCS: 25605; 73100; 73110; 99282

== ENCOUNTER 2022-09-29 17:30 | Outpatient (RCR) | payer OTHER, SELFPAY ==
--- NOTE | 2022-08-28 11:38 | HP.OTEVAL ---
Patient's Visit Information MELISSA LINDA is a 67 year old F, referred to Occupational Therapy by Dr. Chaparro Teresa MD, with a diagnosis of right distal radius fx. Date of Evaluation: 08/28/22 Occupational Therapist: Olive Min, OTR/L, CHT - Subjective This 67 year old female was seen for OT Eval with dx of right distal radius fx. pt states she suffered a fall while cleaning her home DOI 07/13/22. Went to ER and than was casted 2 weeks later due to swelling. 07/28/22. 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 care. pt is right handed- pt had cast off Thursday after 4 weeks. - ADLs Kitchen: Peel fruits & vegetables, Open jars, Open bottle caps Comments: pt lives alone in 2 story with basement-. pt states she currently limited with ADLs and IADLs. pt attempting to do light tasks with her wrist brace on - Pain right wrist 2 Pain Intensity Range: 4 - ROM Forearm: right 40* left 65* Wrist: right 30/20 left 70/70 - Strength Composition Floor Setter: right NT left 60# Lateral Pinch: right NT left 10# Tripod Pinch: right NT left 8# - Edema Wrist: right 18.5cm left 15.5cm PIP: right 6.8 left 6.4 - Sensation Sensation Comments: thumb does get tingling in thumb - pt thinks positioning - Quick DASH-Disab of Arm,Shoulder& Hand Quick DASH Score: 55.0000 - Goals Goal:ROM equal to unaffected hand: Yes Goal:Composition Floor Setter/Pinch strength at least 75% of unaffected hand: Yes Goal:No pain with affected hand use: Yes Goal:PIP Circumferences equal to unaffected hand: Yes Goal:Full use of affected hand in daily activities including: Yes - Rehabilitation General Assessment: pt arrives s/p w weeks from distal radius reduction and casting demo with limited forearm/wrist ROM - weakness and pain limiting pts use of right hand with ADLS and IADLs. pt would benefit from skilled OT services 2x week for 6 weeks to assist pt in returning to her PLOF. Today therapist ed. pt on AROM of forearm-wrist flex/ext and UD/RD pt demo understanding and agree to POC. Rehabilitation Potential: Good - Anticipated Interventions A/AAROM/PROM, Strengthening, Triggerpoint Release, Modalities, Orthoses, Joint Protection/Energy Conservation, Ergonomic Education, Fine Motor Coord/Rafita, Education re assistive Equipment, Education re Diagnosis, Home Program - Visit Plan Frequency: 1-2x /Week Duration: 6 Weeks General Plan: will initiate ROM ex for next two weeks. will initiate light strength at 6 weeks. No heavy lifting for 6 weeks or unless advises otherwise TEXT: Thank you for the opportunity to evaluate your patient. For Medicare and Medicare HMO plans, please review the plan of care and approve it. It will need to be FAXED BACK to us at [phone] for Medicare purposes. Please let me know if there are questions or concerns regarding this plan of care. Physician Signature: Date:
--- NOTE | 2022-09-29 17:55 | OTREVAL_ITS ---
Dr. Chaparro Teresa MD, It has been my pleasure to treat MELISSA LINDA over the last 10 visits for right distal radius fx. Please see the progress note below for an update on the occupational therapy plan of care! Subjective: pt arrives to session 5 weeks following cast removal- pt states she sill has difficulty with some end motion when brushing teeth and her hair- as she is right handed. pt states still has sensitivity around her TFCC/ulnar region but is significantly better. pt is performing all her Bathing/dressing and daily task at IND. level Objective/Function: right forearm supination 65* increase from 40*- has click has diminished. right wrist ROM 70/40 increase from 30/20. right gravity prospecting observer helper strength 40# left is 65#. pt reports tingling and numbness throughout morales nerve distribution at times- mostly tip of thumb and IF depending on positioning. pt has made good gains in her strength and ROM- pt demo understanding of HEP and will continue with that as tolerated. pt to return to for follow up Plan Visits in this POC: pt to return to dr for follow up Plan: pt doing well and to cont. with HEP unless otherwise specified Goals - Goals Patient Goals: Regain Mobility, Decrease Pain, Decrease Swelling/Stiffness, Be More Independent in ADLS Goal:ROM equal to unaffected hand: Yes Goal:Capacity Planning Analyst/Pinch strength at least 75% of unaffected hand: Yes Goal:No pain with affected hand use: Yes Goal:PIP Circumferences equal to unaffected hand: Yes Goal:Full use of affected hand in daily activities including: Yes Anticipated Interventions Anticipated Interventions: A/AAROM/PROM, Strengthening, Triggerpoint Release, M odalities, Orthoses, Joint Protection/Energy Conservation, Ergonomic Education, Fine Motor Coord/Rafita, Education re assistive Equipment, Education re Diagnosis, Home Program Please do not hesitate to contact me at [phone] by phone or if you have questions or concerns regarding this new plan of care! Sincerely, Olive Min, MANUELR/L, CHT
--- NOTE | 2023-01-28 15:12 | HP.OTDCSUM_ITS ---
It has been my pleasure to treat MELISSA LINDA under orders from Dr. Chaparro Teresa MD, for the diagnosis of right distal radius fx for a total of 10 visit(s). Please see the following information for a summary of their discharge status. % Improvement: 80 Objective/Function: pt last seen on 09/29/22. right forearm supination 65* increase from 40*- has click has diminished. right wrist ROM 70/40 increase from 30/20. right openstack developer strength 40# left is 65#. pt reports tingling and numbness throughout morales nerve distribution at times- mostly tip of thumb and IF depending on positioning. pt has made good gains in her strength and ROM- pt demo understanding of HEP and will continue with that as tolerated. pt to return to for follow up Patient Goals: Regain Mobility, Decrease Pain, Decrease Swelling/Stiffness, Be More Independent in ADLS Goal:ROM equal to unaffected hand: Yes Goal:Furniture Decals Inspector/Pinch strength at least 75% of unaffected hand: Yes Goal:No pain with affected hand use: Yes Goal:PIP Circumferences equal to unaffected hand: Yes Goal:Full use of affected hand in daily activities including: Yes Plan: pt doing well and to cont. with HEP unless otherwise specified If there are questions or concerns regarding this patient's occupational therapy, please fell free to call me at [phone]. Thank you for the referral of this patient. Sincerely, Olive Min, OTR/L, CHT
== END 2022-09-29 19:00 | disposition home or self-care (01) ==
LOC: OT 17:30
PROVIDERS: PCP Family Medicine; Referring Provider Orthopaedic Surgery Sports Medicine; Visit Provider Orthopaedic Surgery Sports Medicine
DX: S52.509D Unspecified fracture of the lower end of unspecified radius, subsequent encounter for closed fracture with routine healing (principal)
CPT/HCPCS: 97110; 97140; 97166; 97530

== ENCOUNTER → 2024-02-15 | Outpatient (CLI) | payer OTHER, SELFPAY ==
[2024-02-15 12:08] LABS: Absolute Lymphocyte Count 1.29 X10^3/uL (0.83-4.51); Absolute Neutrophil Count 4.2 X10^3/uL (2.0-7.7); Basophil# 0.03 X10^3/uL; Basophil% 0.5 % (0-1); Hemoglobin 12.3 g/dL (12.0-15.0); Lymphocyte # 1.29 X10^3/ul (0.83-4.51); Lymphocyte % 21.5 % (19-41); Mean Corp Hgb Conc 30.8 g/dL (32-36); Mean Corpuscular Hgb 27.9 pg (27.0-32.0); Mean Corpuscular Volume 90.7 fL (81-99); Mean Platelet Vol. 9.3 fl (6.2-12.0); Monocyte# 0.51 X10^3/uL; Monocyte% 8.5 % (0-10); NRBC Flagged by Analyzer 0 % (0-5); Neutrophil # 4.17 X10^3/uL (2.7-7.7); Neutrophil % 69.3 % (47-70); Platelet Count 394 K/mm3 (150-450); RBC Distribution Width SD 49.9 fl (35.1-43.9); Red Blood Count 4.41 M/mm3 (4.2-5.4)
[2024-02-15 12:36] LABS: ALB/GLOB Ratio 0.8 RATIO (0.9-2.4); AST(SGOT) 25 U/L (15-37); Alanine Aminotransfer ALT/SGPT 25 U/L (13-56); Albumin, Serum 3.3 g/dL (3.2-5.0); Alkaline Phosphatase 145 U/L (45-117); Anion Gap 6 (5-15); BUN 13 mg/dL (7-18); BUN/Creat Ratio 15.5 RATIO (10-20); Calcium,Total 8.9 mg/dL (8.5-10.1); Chloride 107 mmol/L (98-107); Cholesterol 187 mg/dL (200); Creatinine, Serum 0.84 mg/dL (0.55-1.02); EST Glomerular Filtration Rate 72 mL/min (>60); Est Glom Filt Rate - Afr Amer 87 mL/min (>60); Globulin 4.1 g/dL (2.2-4.2); Glucose 100 mg/dL (74-106); High Density Lipoprotein 65 mg/dL; Potassium 3.7 mmol/L (3.5-5.1); Protein, Total 7.4 g/dL (6.4-8.2); Sodium Level 142 mmol/L (136-145); Thyroid Stim Hormone (TSH) 2.34 uIU/mL (0.358-3.74); Triglycerides 106 mg/dL; Very Low Density Lipoprotein 21 mg/dL (5-40)
== END | disposition home or self-care (01) ==
LOC: BIMLAB 09:53
PROVIDERS: PCP Internal Medicine; Visit Provider Internal Medicine
DX: E03.9 Hypothyroidism, unspecified (principal); E11.9 Type 2 diabetes mellitus without complications; Z13.6 Encounter for screening for cardiovascular disorders
CPT/HCPCS: 36415; 80053; 80061; 84443; 85025

== ENCOUNTER → 2024-04-26 | Outpatient (CLI) | payer OTHER, SELFPAY ==
--- NOTE | 2024-04-26 07:44 | BI_ITS ---
MAMMOGRAPHY - BILATERAL SCREENING REASON FOR EXAM: Female, 68 years old. Routine annual screening examination. PERTINENT HISTORY: Non-contributory. TECHNIQUE: Digital bilateral breast nazanin (3D mammographic acquisition) in the CC and MLO projections. 2-D mediolateral oblique (MLO) and craniocaudad (CC) views of both breasts were obtained. CAD: Full Field Digital Mammography with Computer Added Detection was performed. COMPARISON: Comparison is made with prior study May 22, 2022 and March 07, 2021. FINDINGS: Breast Composition: The breasts are heterogeneously dense, which may obscure small masses. There are no dominant masses or suspicious calcifications. No other significant abnormalities are identified. There has been no significant change since the prior study. BI/SCRN MAMM (CAD)W/NAZANIN BILAT IMPRESSION: Stable bilateral screening mammogram. Yearly follow-up mammogram recommended. (A) ASSESSMENT CATEGORY: BIRADS Category 1: Negative. A letter regarding these results will be sent to the patient by the facility within 30 days. Approximately 10% of breast cancers are not detected by mammography. A normal mammogram should not delay biopsy of a clinically suspicious abnormality. [id number] Electronically Signed: Chuck Salazar MD at 8:56 EDT ,
== END | disposition home or self-care (01) ==
LOC: OPBI 07:44
PROVIDERS: PCP Internal Medicine; Referring Provider Internal Medicine; Visit Provider Internal Medicine
DX: Z12.31 Encounter for screening mammogram for malignant neoplasm of breast (principal)
CPT/HCPCS: 77063; 77067

== ENCOUNTER → 2025-02-27 | Outpatient (CLI) | payer OTHER, SELFPAY ==
[2025-02-27 12:34] LABS: Absolute Lymphocyte Count 1.25 X10^3/uL (0.83-4.51); Basophil# 0.03 X10^3/uL; Basophil% 0.5 % (0-1); Eosinophil# 0.15 X10^3/uL; Eosinophils% 2.5 % (0-5); Hematocrit 40.6 % (37-47); Hemoglobin 12.9 g/dL (12.0-15.0); Lymphocyte # 1.25 X10^3/ul (0.83-4.51); Lymphocyte % 21.1 % (19-41); Mean Corp Hgb Conc 31.8 g/dL (32-36); Mean Corpuscular Hgb 29.3 pg (27.0-32.0); Mean Corpuscular Volume 92.1 fL (81-99); Mean Platelet Vol. 9.2 fl (6.2-12.0); Monocyte# 0.49 X10^3/uL; Monocyte% 8.3 % (0-10); NRBC Flagged by Analyzer 0 % (0-5); Neutrophil # 3.99 X10^3/uL (2.7-7.7); Neutrophil % 67.3 % (47-70); Platelet Count 303 K/mm3 (150-450); RBC Distribution Width CV 13.9 % (11.6-14.6); RBC Distribution Width SD 47.5 fl (35.1-43.9); Red Blood Count 4.41 M/mm3 (4.2-5.4); White Blood Count 5.9 K/mm3 (4.4-11.0)
[2025-02-27 12:55] LABS: ALB/GLOB Ratio 1.2 RATIO (0.9-2.4); AST(SGOT) 25 U/L (<=31); Alanine Aminotransfer ALT/SGPT 17 U/L (<=34); Albumin, Serum 3.8 g/dL (3.4-4.8); Alkaline Phosphatase 135 U/L (35-104); Anion Gap 10 (5-15); BUN 10 mg/dL (4-19); BUN/Creat Ratio 13.9 RATIO (10-20); Calcium,Total 8.6 mg/dL (7.6-11.0); Carbon Dioxide 25.1 mmol/L (21.0-32.0); Chloride 107 mmol/L (98-108); Cholesterol 206 mg/dL (<=200); Creatinine, Serum 0.74 mg/dL (0.70-1.20); EST Glomerular Filtration Rate 88 (>60); Glucose 110 mg/dL (70-99); High Density Lipoprotein 59 mg/dL; Low Density Lipoprotein Calc. 118 mg/dL; Protein, Total 6.8 g/dL (5.9-8.4); Sodium Level 142 mmol/L (133-145); Total Bilirubin 0.42 mg/dL (0.00-1.30); Triglycerides 147 mg/dL; Very Low Density Lipoprotein 29 mg/dL (5-40)
== END | disposition home or self-care (01) ==
LOC: BIMLAB 10:52
PROVIDERS: PCP Internal Medicine; Referring Provider Internal Medicine; Visit Provider Internal Medicine
DX: I10 Essential (primary) hypertension (principal); J45.50 Severe persistent asthma, uncomplicated; E66.01 Morbid (severe) obesity due to excess calories; Z68.42 Body mass index [BMI] 45.0-49.9, adult; R73.03 Prediabetes; E03.9 Hypothyroidism, unspecified
CPT/HCPCS: 36415; 80053; 80061; 83036; 84443; 85025